=== PATIENT | female | born 1960 | race Caucasian/White ===

== ENCOUNTER 2020-02-16 09:45 | Outpatient (REF) | payer OTHER, SELFPAY ==
[2020-02-16 11:17] LABS: MANUAL DIFF FLAG NO
[2020-02-16 11:27] LABS: Basophils Percent Auto 0.6 % (0-2); Eosinophils Absolute Auto 0.1 X10*3/uL (0.0-0.4); Eosinophils Percent Auto 2.9 % (0-4); Hematocrit 42.3 % (37-47); Hemoglobin 13.8 g/dl (12.0-16.0); Imm Gran Abs Auto 0.02 X10*3/uL (0.00-0.03); Imm Gran Pct Auto 0.4 % (0.0-0.4); Lymphocytes Percent Auto 19.3 % (20-40); Mean Corpuscular HGB Conc 32.6 g/dl (31.0-35.0); Mean Corpuscular Hemoglobin 30.5 pg (27.0-33.0); Mean Corpuscular Volume 93.6 fL (80-98); Mean Platelet Volume 9.4 fL (9.4-12.3); Monocytes Absolute Auto 0.3 X10*3/uL (0.1-1.2); Monocytes Percent Auto 6.1 % (2-11); Neutrophils Absolute Auto 3.5 X10*3/uL (2.0-8.3); Neutrophils Percent Auto 70.7 % (45-73); Platelet Count 246 X10*3/uL (160-400); Red Blood Count 4.52 X10*6/uL (4.20-5.50); Red Cell Distribution Width 12.7 % (11.0-16.0); White Blood Count 4.9 X10*3/uL (4.8-10.8)
[2020-02-16 12:05] LABS: TSH reflex Free T4 1.97 mIU/mL (0.32-4.0)
[2020-02-16 12:09] LABS: Anion Gap 12 (12-20); Blood Urea Nitrogen 11 mg/dL (9-16); Carbon Dioxide 29 mmol/L (22-29); Chloride 104 mmol/L (96-108); Estimated Glomerular Filt Rate > 60; Glucose Random 231 mg/dL (60-115); Potassium 3.5 mmol/l (3.3-5.1); Sodium 141 mmol/L (135-145)
== END 2020-02-16 09:46 | disposition home or self-care (01) ==
LOC: HO.HMGCLDS 09:45
PROVIDERS: PCP Internal Medicine; Visit Provider Nurse Practitioner Family
DX: R51.9 Headache, unspecified (principal); R11.0 Nausea
CPT/HCPCS: 36415; 80048; 84443; 85025

== ENCOUNTER 2020-04-06 09:41 | Outpatient (REF) | payer OTHER, SELFPAY ==
[2020-04-06 11:39] LABS: Estimated Average Glucose 134 mg/dL; Hemoglobin A1c % 6.3 %
[2020-04-06 12:42] LABS: SARS COV2 IgG Positive (Negative)
== END 2020-04-06 09:42 | disposition home or self-care (01) ==
LOC: HO.HMGCLDS 09:41
PROVIDERS: PCP Internal Medicine; Visit Provider Internal Medicine
DX: U07.1 COVID-19 (principal); E11.9 Type 2 diabetes mellitus without complications; Z01.84 Encounter for antibody response examination
CPT/HCPCS: 36415; 83036; 86769

== ENCOUNTER 2020-04-08 11:52 | Emergency (ER) | payer OTHER, SELFPAY ==
--- NOTE | 2020-04-08 | ECG_ITS ---
Test Reason : RAPID HERT RATE Blood Pressure : / mmHG Vent. Rate : 125 BPM Atrial Rate : 125 BPM P-R Int : 166 ms QRS Dur : 072 ms QT Int : 296 ms P-R-T Axes : 057 000 040 degrees QTc Int : 427 ms Sinus tachycardia Low voltage QRS Cannot rule out Inferior infarct , age undetermined Abnormal ECG No previous ECGs available Referred By: Generic ED Physician Electronically Signed By:JAYESH CUNNINGHAM
--- NOTE | ~2020-04-08 | XR_ITS ---
EXAMINATION: CHEST 1 VIEW CLINICAL INFORMATION: Tachycardia. COMPARISON: April 14, 2006. TECHNIQUE: An AP view of the chest is provided. FINDINGS: The cardiac silhouette is not enlarged. The mediastinal and hilar contours are unremarkable. There are neither pleural effusions nor pneumothoraces. There are no consolidations. There is a coarse calcification overlying the left greater tuberosity possibly indicative of calcific tendinitis or bursitis. The osseous structures are otherwise unremarkable. XR/XR chest 1V IMPRESSION: No evidence for acute disease.
[2020-04-08 11:55] VITALS: BP 148/111; PULSE 145; RESP 15; TEMP 36.7; O2SAT 98; BMI 28.1
[2020-04-08 12:00] VITALS: BP 160/114; PULSE 125; RESP 17; O2SAT 99
[2020-04-08 14:03] VITALS: PULSE 126
--- NOTE | 2020-04-08 14:03 | PC.NURSE ---
patient a&ox2, media monitor applied, sinus tach on monitor 120s, pt hypertensive-provider aware, pt offers no other complaints other than feeling her heart beat fast, provider at bedside, will continue to monior.
--- NOTE | 2020-04-08 14:12 | ED.ARRPALP ---
HPI - Arrhythmia/Palpitations General Chief Complaint: Arrhythmia/Palpitations Stated Complaint: tachycardia Time Seen by Provider: 04/08/20 13:52 History of Present Illness HPI narrative: Patient complains of elevated blood pressure of 148/110 when she checked it at home, and then she noticed on the blood pressure monitor that her heart was beating at 01:40 and she felt she might a mild sensation of racing heart On a recent visit to her primary doctor 2 days ago she was found have a heart rate of 120 and the doctor had told her they would re-evaluated but given that she was asymptomatic they would wait and see so no workup was done at that time but she feels like her heart has been a little quicker than normal for the last several days She never had chest pain no shortness of breath no sweating no nausea no vomiting, she has been eating and drinking normally does not feel dehydrated does not feel dizzy or weak, she denies any bleeding from any any source, denies any black stools, she has had no fever or recent illness Related Data Previous Rx's Medication Instructions Recorded budesonide-formoterol HFA 80 2 puff INHALATION BID #10.2 g 12/14/19 mcg-4.5 mcg/actuation aerosol inhaler levothyroxine 50 mcg tablet 150 mcg PO DAILY #258 tab 12/23/19 losartan 50 mg tablet 50 mg PO DAILY #100 tab 03/08/20 Allergies Allergy/AdvReac Type Severity Reaction Status Date / Time No Known Allergies Allergy Verified 04/03/20 13:20 Review of Systems Review of Systems: Review of systems is positive for feeling heart racing, negatives are no fever no chills no dizziness no weakness no headache no neck pain no sore throat no chest pain no shortness of breath no doc no sweating no diaphoresis no abdominal pain no nausea no vomiting no diarrhea no black stools no dysuria no numbness or weakness PMFSH Past Medical History PMFSH Narrative: Patient has past medical history of thyroid ablation and now takes thyroid supplement Source: nursing notes reviewed Medical History Asthma COVID-19 Gastric polyp GERD (gastroesophageal reflux disease) HTN (hypertension) Hypothyroidism Microscopic hematuria Type 2 diabetes mellitus Surgical History H/O colonoscopy History of hysteroscopy Family History Family History (Updated 04/03/20 @ 13:20 by Anabell Baez, RMA, [employer]) Father No problems noted. Social History Social History Alcohol intake: former Smoking Status: Never smoker Use of substances other than those prescribed or required for medical reasons: No Advance Directives: No Advance Directives Information Provided: Yes Physical Exam Vital Signs: Vital Signs: Last Vital Signs Temp 98.1 F 04/08/20 11:55 Pulse 126 H 04/08/20 14:03 Resp 17 04/08/20 12:00 BP 160/114 H 04/08/20 12:00 Pulse Ox 99 04/08/20 12:00 Body Mass Index 28.1 Patient is A&O x3, comfortable relax no acute distress and cooperative The head is normocephalic atraumatic the pharynx is clear with moist mucous membranes The neck is supple The chest is clear to auscultation bilaterally with full symmetric equal breath sounds The heart no murmur auscultated The abdomen is soft nontender Extremities no edema, no calf tenderness or calf swelling The skin no rashes The neuro no facial asymmetry no motor deficit no sensory deficit, gait and balance are normal, verbal interaction and understanding are normal Course Course Course Narrative: Patient came in at this time when I examined her asymptomatic but concerned about the high heart rate EKG so showed sinus tachycardia at a rate of 125 Differential diagnosis included fever dehydration heart attack blood clot, anemia Workup showed negative D-dimer and negative troponin negative thyroid testing negative for anemia, chest x-ray was normal, no acute lab abnormalities Patient was hydrated with 1 L and pulse on monitor remained around 90-95 for the remainder of the visit patient was asymptomatic and was discharged with a diagnosis of tachycardia She will follow with primary doctor and discuss possible referral to preschool special education teacher for possible Holter monitor or further evaluation MDM - Arrhythmia/Palpitations Lab Data Attestation: I reviewed the patient's lab results. Result diagrams: 04/08/20 14:32 04/08/20 14:32 Labs: Lab Results 04/08/20 04/08/20 04/08/20 Range/Units 14:32 14:32 14:32 WBC 7.1 (4.8-10.8) X10*3/uL RBC 4.97 (4.20-5.50) X10*6/uL Hgb 15.1 (12.0-16.0) g/dl Hct 45.0 (37-47) % MCV 90.5 (80-98) fL MCH 30.4 (27.0-33.0) pg MCHC 33.6 (31.0-35.0) g/dl RDW 13.2 (11.0-16.0) % Plt Count 216 (160-400) X10*3/uL MPV 9.4 (9.4-12.3) fL Immature Gran % (Auto) 0.3 (0.0-0.4) % Neut % (Auto) 68.9 (45-73) % Lymph % (Auto) 22.2 (20-40) % Routt % (Auto) 7.1 (2-11) % Eos % (Auto) 1.1 (0-4) % Baso % (Auto) 0.4 (0-2) % Lymph # (Auto) 1.6 (1.2-4.9) X10*3/uL Routt # (Auto) 0.5 (0.1-1.2) X10*3/uL Eos # (Auto) 0.1 (0.0-0.4) X10*3/uL Baso # (Auto) 0.0 (0.0-0.2) X10*3/uL Abs Immat Gran (auto) 0.02 (0.00-0.03) X10*3/uL Absolute Neuts (auto) 4.9 (2.0-8.3) X10*3/uL Absolute Nucleated RBC 0.000 (0.0-0.012) X10*3/uL Nucleated RBC % (auto) 0.0 (0.0-0.2) /100WBC D-Dimer < 200 NG/ML Hold Blue Top SEE NOTE Sodium 140 (135-145) mmol/L Potassium 3.9 (3.3-5.1) mmol/L Chloride 105 (96-108) mmol/L Carbon Dioxide 25 (22-29) mmol/L Anion Gap 14 (12-20) BUN 10 (9-16) mg/dL Creatinine 0.74 (0.5-1.4) mg/dL Estim Creat Clear Calc 80.7 Estimated GFR > 60 Random Glucose 125 H D (60-115) mg/dL Calcium 9.6 D (8.4-10.2) mg/dL Troponin I High Sens (<3.5-17.0) ng/L TSH (0.32-4.0) uIU/mL 04/08/20 04/08/20 Range/Units 14:32 14:32 WBC (4.8-10.8) X10*3/uL RBC (4.20-5.50) X10*6/uL Hgb (12.0-16.0) g/dl Hct (37-47) % MCV (80-98) fL MCH (27.0-33.0) pg MCHC (31.0-35.0) g/dl RDW (11.0-16.0) % Plt Count (160-400) X10*3/uL MPV (9.4-12.3) fL Immature Gran % (Auto) (0.0-0.4) % Neut % (Auto) (45-73) % Lymph % (Auto) (20-40) % Routt % (Auto) (2-11) % Eos % (Auto) (0-4) % Baso % (Auto) (0-2) % Lymph # (Auto) (1.2-4.9) X10*3/uL Routt # (Auto) (0.1-1.2) X10*3/uL Eos # (Auto) (0.0-0.4) X10*3/uL Baso # (Auto) (0.0-0.2) X10*3/uL Abs Immat Gran (auto) (0.00-0.03) X10*3/uL Absolute Neuts (auto) (2.0-8.3) X10*3/uL Absolute Nucleated RBC (0.0-0.012) X10*3/uL Nucleated RBC % (auto) (0.0-0.2) /100WBC D-Dimer NG/ML Hold Blue Top Sodium (135-145) mmol/L Potassium (3.3-5.1) mmol/L Chloride (96-108) mmol/L Carbon Dioxide (22-29) mmol/L Anion Gap (12-20) BUN (9-16) mg/dL Creatinine (0.5-1.4) mg/dL Estim Creat Clear Calc Estimated GFR Random Glucose (60-115) mg/dL Calcium (8.4-10.2) mg/dL Troponin I High Sens < 3.5 (<3.5-17.0) ng/L TSH 0.61 (0.32-4.0) uIU/mL ECG Data Interpretation: EKG showed sinus tachycardia at a rate of 125, no acute ST changes no acute ischemic changes ND was 166 normal and QRS duration was 72 QT was normal Discharge Plan Discharge Clinical Impression: Sinus tachycardia Patient Disposition: Home, Self-Care Additional Instructions: Our workup today did not reveal any dangerous cause for your intermittent racing heartbeat We checked for pulmonary embolus heart attack anemia elevated thyroid all of which were normal You had no recent illness and have not been dehydrated We could not identify the cause so we advise very close follow-up with primary doctor this week, you may need referral to a preschool special education teacher for Holter monitor Make sure to stay well hydrated Return to ER any time any worse condition or concerns, any time for chest pain shortness of breath vomiting dehydration fever any concerns For your finding that blood pressure has been elevated recently keep a log of blood pressure readings at home and again follow closely with primary doctor Prescriptions: No Action budesonide-formoterol [Symbicort] 80-4.5 mcg/actuation HFA aerosol inhaler 2 puff inhalation BID Qty: 10.2 RF: 3 levothyroxine 50 mcg tablet 150 mcg PO DAILY Qty: 258 RF: 1 losartan 50 mg tablet 50 mg PO DAILY Qty: 100 RF: 3
[2020-04-08] MEDS: 0.9 % Sodium Chloride 1,000 ML 999 ML IVCONT (14:37)
--- NOTE | 2020-04-08 14:38 | PC.NURSE ---
iv inserted, labs drawn, ekg was performed in triage, ivf running per order, will continue to monitor.
[2020-04-08 14:39] LABS: MANUAL DIFF FLAG NO
[2020-04-08 14:56] LABS: Basophils Percent Auto 0.4 % (0-2); D Dimer < 200 NG/ML; Eosinophils Absolute Auto 0.1 X10*3/uL (0.0-0.4); Eosinophils Percent Auto 1.1 % (0-4); Hemoglobin 15.1 g/dl (12.0-16.0); Imm Gran Abs Auto 0.02 X10*3/uL (0.00-0.03); Imm Gran Pct Auto 0.3 % (0.0-0.4); Lymphocytes Absolute Auto 1.6 X10*3/uL (1.2-4.9); Lymphocytes Percent Auto 22.2 % (20-40); Mean Corpuscular HGB Conc 33.6 g/dl (31.0-35.0); Mean Corpuscular Hemoglobin 30.4 pg (27.0-33.0); Mean Corpuscular Volume 90.5 fL (80-98); Mean Platelet Volume 9.4 fL (9.4-12.3); Monocytes Absolute Auto 0.5 X10*3/uL (0.1-1.2); Monocytes Percent Auto 7.1 % (2-11); Neutrophils Absolute Auto 4.9 X10*3/uL (2.0-8.3); Neutrophils Percent Auto 68.9 % (45-73); Platelet Count 216 X10*3/uL (160-400); Red Blood Count 4.97 X10*6/uL (4.20-5.50); Red Cell Distribution Width 13.2 % (11.0-16.0); White Blood Count 7.1 X10*3/uL (4.8-10.8)
[2020-04-08 15:05] LABS: Anion Gap 14 (12-20); Blood Urea Nitrogen 10 mg/dL (9-16); Calcium 9.6 mg/dL (8.4-10.2); Carbon Dioxide 25 mmol/L (22-29); Chloride 105 mmol/L (96-108); Creatinine Clr Calc Pharmacy 80.7; Estimated Glomerular Filt Rate > 60; Glucose Random 125 mg/dL (60-115); Potassium 3.9 mmol/L (3.3-5.1); Sodium 140 mmol/L (135-145)
[2020-04-08 15:12] LABS: Troponin-I High Sensitivity < 3.5 ng/L (<3.5-17.0)
[2020-04-08 15:27] LABS: TSH reflex Free T4 0.61 uIU/mL (0.32-4.0)
[2020-04-08 16:25] VITALS: PULSE 97; RESP 16
== END 2020-04-08 16:26 | disposition home or self-care (01) ==
PROVIDERS: Physician Assistant Medical; Emergency Provider Emergency Medicine Emergency Medical Services; PCP Internal Medicine
DX: R00.0 Tachycardia, unspecified (principal); I49.9 Cardiac arrhythmia, unspecified; E11.9 Type 2 diabetes mellitus without complications; I10 Essential (primary) hypertension; Z79.899 Other long term (current) drug therapy; Z86.16 Personal history of COVID-19
CPT/HCPCS: 36415; 71045; 80048; 84443; 84484; 85025; 85379; 93005; 96360; 99284; 99285

== ENCOUNTER 2020-04-13 09:31 | Outpatient (REF) | payer OTHER, SELFPAY ==
--- NOTE | ~2020-04-13 | CT_ITS ---
EXAMINATION: CT ANGIOGRAM OF THE CHEST WITH AND WITHOUT CONTRAST (CT PULMONARY ANGIOGRAM FOR PE) CLINICAL INFORMATION: Reason for Exam R00.0 - Tachycardia, unspecified COMPARISON: None TECHNIQUE: Prior to contrast administration, noncontrast localization images were obtained. Subsequently, multidetector volumetric imaging was performed from the thoracic inlet to below the diaphragms following the administration of 64 mL Omnipaque 350 intravenous contrast. No contrast reaction reported Sagittal, coronal, and MIP oblique sagittal reformatted images were obtained on the CT workstation, uploaded to PACS, and reviewed. This CT examination was performed using dose optimization techniques as appropriate, variously including the following: *Automated exposure control *Adjustment of mA and/or kV according to patient size (this includes techniques or standardized protocols for targeted exams where dose is matched to indication/reason for exam; i.e. extremities or head) *Use of iterative reconstruction technique Total exam dose-length product 118 mGy-cm FINDINGS: QUALITY OF STUDY/CONTRAST BOLUS: Satisfactory. PULMONARY ARTERIES: No central or segmental pulmonary emboli. THORACIC AORTA: No aneurysm or dissection. LUNG: No focal consolidation, nodules or masses. PLEURA: No pleural effusion or pneumothorax. MEDIASTINUM: Normal heart size. No pericardial effusion. No hilar or mediastinal lymphadenopathy. No evidence of septal bowing or right heart strain. There is a moderate-sized hiatal hernia. CHEST WALL/AXILLA: No axillary or internal mammary lymphadenopathy. OSSEOUS STRUCTURES: No lytic or sclerotic process seen. There is mild ventral spondylosis throughout dorsal spine. UPPER ABDOMEN: The liver is mildly attenuated but no focal lesion seen. The spleen, pancreas and partially visualized bilateral adrenal glands are unremarkable. No reflux of contrast into the hepatic veins to suggest elevated right heart pressures. CT/CT angio chest PE protocol IMPRESSION: No evidence of PE. No evidence of aortic dissection or aneurysm. There is moderate ventral spondylosis dorsal spine. No lytic process seen. Moderate constipation.. VTE: negative
[2020-04-13] MEDS: iohexoL 350 MG/ML 75 ML INFUS..BTL IV (15:26)
== END 2020-04-13 09:32 | disposition home or self-care (01) ==
LOC: HO.CT 09:31
PROVIDERS: PCP Internal Medicine; Visit Provider Internal Medicine
DX: R00.0 Tachycardia, unspecified (principal); I10 Essential (primary) hypertension; R73.03 Prediabetes; E03.9 Hypothyroidism, unspecified; Z86.16 Personal history of COVID-19
CPT/HCPCS: 71275; 93005; Q9967

== ENCOUNTER → 2020-04-16 12:43 | Outpatient (REF) | payer OTHER, SELFPAY ==
--- NOTE | 2020-04-16 12:55 | ECG_ITS ---
Hook-up date: 2020-04-16 13:01:00 Duration: 43:23:00 Test Indications: UNSPEC. TACHYCARDIA Medications: 447578 QRS complexes 2652 Ventricular ectopics which represent 2 % of total QRS comp. 157 Supraventricular ectopics which represent <1 % of total QRS comp. * Paced QRS complexs which represent % of total QRS comp. VENTRICULAR ECTOPY 2642 Isolated 0 Bigeminal Cycles 5 Couplets 0 Runs 0 Beats in Runs * Beats LONGEST at * BPM at :: -- * Beats FASTEST at * BPM at :: -- SUPRAVENTRICULAR ECTOPY 108 Isolated 11 Couplets 4 Runs 27 Beats in Runs 10 Beats LONGEST at 99 BPM at 13:26:49 2020-04-16 10 Beats FASTEST at 99 BPM at 13:26:49 2020-04-16 HEART RATES 55 MIN at 01:54:40 2020-04-17 85 AVG 133 MAX at 08:18:03 2020-04-17 LONGEST RR 1.8560 secs at 01:54:35 2020-04-17 S-T LEVELS Channel 1 - 128 mm at 13:01:00 2020-04-16 - 128 mm at 13:01:00 2020-04-16 Channel 2 - 128 mm at 13:01:00 2020-04-16 - 128 mm at 13:01:00 2020-04-16 Channel 3 - 128 mm at 03:22:01 -- - 128 mm at 03:22:01 Underlying rhythm is sinus; Average ventricular rate 85/min; range 55-133/min; About 17% of the time, ventricular rate >100/min; Frequent ventricular ectopy (2%); Occasional supraventricular ectopy; Patient did not report any symptoms in the diary Referred By: Tiffany Stringer Overread By: JAYESH CUNNINGHAM
== END ==
LOC: HO.CARD 12:43
PROVIDERS: PCP Internal Medicine; Visit Provider Internal Medicine
DX: R00.0 Tachycardia, unspecified (principal); E03.9 Hypothyroidism, unspecified
CPT/HCPCS: 93225; 93226

== ENCOUNTER → 2020-04-17 07:38 | Outpatient (REF) | payer OTHER, SELFPAY ==
--- NOTE | 2020-04-17 07:42 | CA_ITS ---
Transthoracic Echocardiogram Patient (Last, First, Middle): Gretchen Lawler M Gender: Female Date of : 1960 Age: 60 Procedure Date: 04/17/2020 Procedure Type: Transthoracic Echocardiogram Location: OP Height: 165.1 cm Weight: 77.57 kg BSA: 1.85 m2 Heart Rate: bpm BP: 151 / 97 mmHg Home Improvement Advisor: CRISTIANO Referring MD: Tiffany Stringer MD Symptoms: R00.0 - Tachycardia, unspecified Study Quality: Fair ECG Rhythm: Sinus Conclusions: - The left ventricular systolic function is normal. The visually estimated ejection fraction is between 55-60%. - No obvious valvular pathology seen on this study. Findings Left Ventricle Normal left ventricular cavity size. There is normal left ventricular wall thickness. The left ventricular systolic function is normal. The visually estimated ejection fraction is between 55-60%. The calculated ejection fraction is 61% by biplane method. There is no evidence of regional wall motion abnormalities. E/E prime ratio is <8, consistent with normal filling pressures. Evidence suggests grade I (mild) diastolic dysfunction. Right Ventricle Normal right ventricular cavity size and systolic function. Atria Both atria are normal in size. Aortic Valve There is a normal trileaflet aortic valve. There is no aortic valve stenosis. There is no aortic valve regurgitation. Mitral Valve The mitral valve appears normal. There is no mitral valve regurgitation. There is no mitral valve stenosis. Pulmonic Valve The pulmonic valve was not well visualized. Tricuspid Valve Normal tricuspid valve structure. There is trace tricuspid valve regurgitation. The pulmonary artery systolic pressure is normal. Great Vessels The aortic annulus, sinuses of valsalva, asc aorta, and aortic arch are normal in size. Venous The inferior vena cava is normal in size and collapses greater than 50% with inspiration. Pericardium/Pleural There is no evidence of pericardial effusion. Prior Study Comparison No prior study available for comparison. Recommendations, Care & Conclusions No obvious valvular pathology seen on this study. Measurements M-Mode Liner Measurements Normals - Women/Men AOV Cusps: 2.10 1.5-2.6 cm/m2 2D Linear Measurements IVSd: 0.81 0.6-0.9/0.6-1.0 cm LVIDd: 4.58 3.9-5.3/4.2-5.9 cm LVIDd Index: 2.48 2.4-3.2/2.2-3.1 cm/m2 LVIDs: 3.95 2.0-3.6 cm LVPWd: 0.77 0.7-1.1 cm Ao Root: 3.00 2.1-3.5 cm LA Diam: 2.50 2.7-3.8/3.0-4.0 cm LAIDs Index: 1.35 1.5-2.3 cm/m2 LV Mass: 143.18 67-162/88-224 g LV Mass Index: 77.39 43-95/49-115 g/m2 LVOT Diam: 2.30 3.0+(-)1.3 cm 2D Systolic Function EF 4C: 56.10 >55% EF 2C: 65.20 >55% EF BiP: 60.90 >55% Mitral Valve MV Pk E: 0.75 MV PK A: 1.10 MV Decel Time: 240.00 E/A: 0.70 E'Lateral: 9.79 E'Medial: 7.29 E/E' Med: 10.20 E/E' Lat: 7.60 PHT: 70.00 MVA PHT: 3.14 Decel Mercer: 3.11 Aortic Valve AoV Pk Mirza: 1.15 AoV Pk Grad: 5.00 LVOT LVOT Pk Mirza: 0.80 LVOT Mn Mirza: 0.51 LVOT VTI: 0.20 LVOT Pk Grad: 3.00 LVOT Mn Grad: 1.00 LVOT Diam: 2.30 LVOT Area: 4.15 Diastolic Function MV Pk E: 0.75 MV Pk A: 1.10 E/A: 0.70 E'Medial: 7.29 E/E' Med: 10.20 E' Laterial: 9.79 E/E' Lat: 7.60 Tricuspid Valve RA Press: 3.00 Great Vessels Aorta Ao Root-2D: 3.00 2.0-3.7 cm Ao Asc: 3.30 2.1-3.4 cm Ao Arch: 2.00 Pulmonary Valve PV Pk Mirza: 0.81 Peak PV Grad: 3.00 Updated in Other Vendor System with Status of Final Benjamin Kennedy MD electronically signed on 04/17/2020 8:47:06 AM with status of Final
== END ==
LOC: HO.CARD 07:38
PROVIDERS: PCP Internal Medicine; Visit Provider Internal Medicine
DX: R00.0 Tachycardia, unspecified (principal); I10 Essential (primary) hypertension; E03.9 Hypothyroidism, unspecified
CPT/HCPCS: 93306

== ENCOUNTER → 2020-04-27 13:01 | Outpatient (BNVA) | payer OTHER, SELFPAY | PROVIDERS: PCP Internal Medicine; Visit Provider Nurse Practitioner Family ==

== ENCOUNTER 2020-06-04 12:28 | Outpatient (REF) | payer OTHER, SELFPAY ==
--- NOTE | ~2020-06-04 | MM_ITS ---
EXAMINATION: MM SCREENING DIGITAL BREAST TOMOSYNTHESIS, BILATERAL CLINICAL INFORMATION: Screening. Asymptomatic. The lifetime risk of breast cancer based on the Tyrer-Cuzick Model is 6%. COMPARISON: Mammography: 04/11/2019, 04/05/2018, 09/24/2017 TECHNIQUE: Digital breast tomosynthesis is performed in both the craniocaudal and mediolateral oblique views along with computer-aided detection (CAD). Synthesized 2D images are generated from the tomosynthesis. FINDINGS: The breasts are heterogeneously dense, which may obscure small masses (ACR BI-RADS breast composition Category c). There are no significant masses, abnormal calcifications, or other abnormalities. There is biopsy clip marker again noted mid 12:00 left breast. Parenchymal pattern is similar to prior studies. No developing density. No significant changes. MM/MM tomosynthesis screening BI IMPRESSION: No mammographic evidence of malignancy. ASSESSMENT: BI-RADS 1: Negative RECOMMENDATION: Routine annual mammography screening. This patient's information was entered into a reminder system with a target due date for their next mammogram.
== END 2020-06-04 12:29 | disposition home or self-care (01) ==
LOC: HO.MAMMO 12:28
PROVIDERS: PCP Internal Medicine; Visit Provider Internal Medicine
DX: Z12.31 Encounter for screening mammogram for malignant neoplasm of breast (principal)
CPT/HCPCS: 77063; 77067

== ENCOUNTER → 2020-06-05 10:30 | Outpatient (BNVA) | payer OTHER, SELFPAY | PROVIDERS: PCP Internal Medicine; Visit Provider Nurse Practitioner Family | DX: R00.0 Tachycardia, unspecified (principal); I10 Essential (primary) hypertension; U07.1 COVID-19; Z79.899 Other long term (current) drug therapy | CPT/HCPCS: 93005 ==

== ENCOUNTER 2020-06-21 07:53 | Outpatient (REF) | payer OTHER, SELFPAY ==
[2020-06-21 11:26] LABS: MANUAL DIFF FLAG NO
[2020-06-21 11:37] LABS: Basophils Percent Auto 0.5 % (0-2); Eosinophils Absolute Auto 0.3 X10*3/uL (0.0-0.4); Eosinophils Percent Auto 4.3 % (0-4); Hematocrit 46.3 % (37-47); Imm Gran Abs Auto 0.01 X10*3/uL (0.00-0.03); Imm Gran Pct Auto 0.2 % (0.0-0.4); Lymphocytes Absolute Auto 1.9 X10*3/uL (1.2-4.9); Lymphocytes Percent Auto 33.4 % (20-40); Mean Corpuscular HGB Conc 32.4 g/dl (31.0-35.0); Mean Corpuscular Hemoglobin 30.2 pg (27.0-33.0); Mean Corpuscular Volume 93.2 fL (80-98); Mean Platelet Volume 9.8 fL (9.4-12.3); Monocytes Absolute Auto 0.5 X10*3/uL (0.1-1.2); Neutrophils Absolute Auto 3.1 X10*3/uL (2.0-8.3); Neutrophils Percent Auto 52.6 % (45-73); Platelet Count 217 X10*3/uL (160-400); Red Blood Count 4.97 X10*6/uL (4.20-5.50); Red Cell Distribution Width 13.3 % (11.0-16.0); White Blood Count 5.8 X10*3/uL (4.8-10.8)
[2020-06-21 11:51] LABS: Estimated Average Glucose 126 mg/dL
[2020-06-21 12:03] LABS: Alanine Aminotransferase 26 U/L (0-31); Albumin Level 4.3 g/dL (3.5-5.0); Alkaline Phosphatase 67 U/L (39-117); Anion Gap 11 (12-20); Aspartate Amino Transferase 20 U/L (5-31); Bilirubin Total 0.8 mg/dL (0.0-1.0); Blood Urea Nitrogen 13 mg/dL (9-16); Calcium 9.7 mg/dL (8.4-10.2); Carbon Dioxide 30 mmol/L (22-29); Chloride 104 mmol/L (96-108); Cholesterol 153 mg/dL; Estimated Glomerular Filt Rate > 60; Glucose Fasting 125 mg/dL (60-99); HDL Cholesterol 66 mg/dL; LDL Cholesterol Calculated 77 mg/dl; Potassium 4.9 mmol/L (3.3-5.1); Sodium 140 mmol/L (135-145); Triglycerides 53 mg/dL
[2020-06-21 12:08] LABS: TSH reflex Free T4 0.28 uIU/mL (0.32-4.0)
[2020-06-21 12:41] LABS: Free T4 (Free Thyroxine) 1.27 ng/dL (0.71-1.85)
== END 2020-06-21 07:54 | disposition home or self-care (01) ==
LOC: HO.HMGCLDS 07:53
PROVIDERS: PCP Internal Medicine; Visit Provider Nurse Practitioner Family
DX: E03.9 Hypothyroidism, unspecified (principal); I10 Essential (primary) hypertension; R00.0 Tachycardia, unspecified; E11.9 Type 2 diabetes mellitus without complications; U07.1 COVID-19
CPT/HCPCS: 36415; 80053; 80061; 83036; 84439; 84443; 85025

== ENCOUNTER → 2020-06-26 11:28 | Outpatient (BNVA) | payer OTHER, SELFPAY | PROVIDERS: PCP Internal Medicine; Referring Provider Internal Medicine; Visit Provider Nurse Practitioner Family ==

== ENCOUNTER 2020-08-20 08:06 | Outpatient (REF) | payer OTHER, SELFPAY ==
[2020-08-20 12:00] LABS: TSH reflex Free T4 0.17 uIU/mL (0.32-4.0)
[2020-08-20 12:48] LABS: Free T4 (Free Thyroxine) 1.28 ng/dL (0.71-1.85)
[2020-08-22 16:37] LABS: Triiodothyronine T3 Free 3.1 pg/mL (2.3-4.2)
== END 2020-08-20 08:07 | disposition home or self-care (01) ==
LOC: HO.HMGCLDS 08:06
PROVIDERS: PCP Internal Medicine; Visit Provider Internal Medicine
DX: E03.9 Hypothyroidism, unspecified (principal)
CPT/HCPCS: 36415; 84439; 84443; 84481

== ENCOUNTER 2020-10-02 09:58 | Outpatient (REF) | payer OTHER, SELFPAY ==
[2020-10-02 12:32] LABS: Free T4 (Free Thyroxine) 1.36 ng/dL (0.71-1.85); TSH reflex Free T4 1.59 uIU/mL (0.32-4.0)
== END 2020-10-02 09:59 | disposition home or self-care (01) ==
LOC: HO.HMGCLDS 09:58
PROVIDERS: PCP Internal Medicine; Visit Provider Internal Medicine
DX: E03.9 Hypothyroidism, unspecified (principal)
CPT/HCPCS: 36415; 84439; 84443

== ENCOUNTER 2020-11-30 07:10 | Outpatient (REF) | payer OTHER, SELFPAY ==
[2020-11-30 12:00] LABS: Estimated Average Glucose 128 mg/dL; Hemoglobin A1c % 6.1 %
[2020-11-30 12:02] LABS: Alanine Aminotransferase 30 U/L (0-31); Albumin Level 4.3 g/dL (3.5-5.0); Alkaline Phosphatase 61 U/L (39-117); Anion Gap 10 (12-20); Aspartate Amino Transferase 23 U/L (5-31); Bilirubin Total 0.6 mg/dL (0.0-1.0); Blood Urea Nitrogen 12 mg/dL (9-16); Calcium 9.7 mg/dL (8.4-10.2); Carbon Dioxide 30 mmol/L (22-29); Chloride 108 mmol/L (96-108); Estimated Glomerular Filt Rate > 60; Glucose Fasting 130 mg/dL (60-99); Potassium 4.7 mmol/L (3.3-5.1); Sodium 143 mmol/L (135-145)
[2020-11-30 12:25] LABS: TSH reflex Free T4 1.85 uIU/mL (0.32-4.0)
== END 2020-11-30 07:11 | disposition home or self-care (01) ==
LOC: HO.HMGCLDS 07:10
PROVIDERS: PCP Internal Medicine; Visit Provider Internal Medicine
DX: Z00.00 Encounter for general adult medical examination without abnormal findings (principal); E11.9 Type 2 diabetes mellitus without complications; I10 Essential (primary) hypertension
CPT/HCPCS: 36415; 80053; 83036; 84443

== ENCOUNTER → 2021-01-01 14:09 | Outpatient (BNVA) | payer OTHER, SELFPAY | PROVIDERS: PCP Internal Medicine; Referring Provider Internal Medicine; Visit Provider Nurse Practitioner Family | DX: I49.3 Ventricular premature depolarization (principal); I10 Essential (primary) hypertension; R00.2 Palpitations; R00.0 Tachycardia, unspecified; U09.9 Post COVID-19 condition, unspecified | CPT/HCPCS: 93005 ==

== ENCOUNTER → 2021-01-23 10:53 | Outpatient (REF) | payer OTHER, SELFPAY ==
--- NOTE | 2021-01-23 10:55 | HM_ITS ---
Conclusion: 1.Patient was monitored for a total of 3 days 2. Baseline rhythm is NSR with average HR of 81 bpm 3. No significant pauses or bradycardia noted 4. Frequent PVC with total burden of 3.2 % of total beats 5. No patient reported events MTDD
== END ==
LOC: HO.CARD 10:53
PROVIDERS: PCP Internal Medicine; Visit Provider Nurse Practitioner Family
DX: R00.0 Tachycardia, unspecified (principal)
CPT/HCPCS: 93242

== ENCOUNTER 2021-06-14 09:02 | Outpatient (REF) | payer OTHER, SELFPAY ==
--- NOTE | ~2021-06-14 | MM_ITS ---
EXAMINATION: MM SCREENING DIGITAL BREAST TOMOSYNTHESIS, BILATERAL CLINICAL INFORMATION: Screening. Asymptomatic. The lifetime risk of breast cancer based on the Tyrer-Cuzick Model is 6%. COMPARISON: Mammography: 06/04/2020, 04/11/2019, 04/05/2018 TECHNIQUE: Digital breast tomosynthesis is performed in both the craniocaudal and mediolateral oblique views along with computer-aided detection (CAD). Synthesized 2D images are generated from the tomosynthesis. FINDINGS: The breasts are heterogeneously dense, which may obscure small masses (ACR BI-RADS breast composition Category c). Breast tissue composition borders on average fibroglandular. There is no developing density or interval mass or architectural abnormality. Left breast has biopsy clip marker overlying stable architectural changes mid 12:00 position. The axilla and skin contours are unremarkable. Right breast has a punctate grouped calcifications posterior 11:00 position on CC view, possibly combination of vascular calcifications upper central breast. Calcifications are new since 2020. Patient will be recalled for additional magnification views. No abnormal calcifications on left. MM/MM tomosynthesis screening BI IMPRESSION: Right: Tight grouped calcifications posterior upper breast, possibly vascular. Left: No significant changes from prior studies. ASSESSMENT: BI-RADS 0: Incomplete - Need Additional Imaging Evaluation RECOMMENDATION: 1. Additional views of the right breast (magnification CC, magnification ML). 2. Radiology department staff will contact the patient for additional imaging. This patient's information was entered into a reminder system with a target due date for their next mammogram.
== END 2021-06-14 09:03 | disposition home or self-care (01) ==
LOC: HO.MAMMO 09:02
PROVIDERS: PCP Internal Medicine; Visit Provider Internal Medicine
DX: Z12.31 Encounter for screening mammogram for malignant neoplasm of breast (principal)
CPT/HCPCS: 77063; 77067

== ENCOUNTER 2021-06-25 14:38 | Outpatient (REF) | payer OTHER, SELFPAY ==
--- NOTE | ~2021-06-25 | MM_ITS ---
EXAMINATION: MM DIAGNOSTIC DIGITAL MAMMOGRAPHY, RIGHT CLINICAL INFORMATION: Recall from screening for punctate grouped calcifications 11:00 position upper central breast. COMPARISON: Mammography: 06/14/2021, 06/04/2020, 04/11/2019 TECHNIQUE: Digital mammography is performed in the following views: Magnification CC x2, magnification ML FINDINGS: The breasts are heterogeneously dense, which may obscure small masses (ACR BI-RADS breast composition Category c). Additional magnification views confirm tightly grouped calcifications approximately 10 in number which represent change from prior studies. The calcifications vary in size. They could represent fibroadenomatous change. Stereotactic sampling is suggested to confirm benignity. There are some other calcifications in the central inner breast which are related to the vasculature. Results are discussed with the patient at time of visit. MM/MM added views RT IMPRESSION: Grouped heterogeneous calcifications mid posterior 11:00 position representing change from prior studies. ASSESSMENT: BI-RADS 4: Suspicious (subcategory 4A: Low suspicion for malignancy) RECOMMENDATION: Stereotactic biopsy right breast calcifications. This patient's information was entered into a reminder system with a target due date for their next mammogram.
== END 2021-06-25 14:39 | disposition home or self-care (01) ==
LOC: HO.MAMMO 14:38
PROVIDERS: PCP Internal Medicine; Visit Provider Internal Medicine
DX: R92.1 Mammographic calcification found on diagnostic imaging of breast (principal)
CPT/HCPCS: 77065

== ENCOUNTER 2021-06-26 13:16 | Outpatient (REF) | payer OTHER, SELFPAY ==
--- NOTE | ~2021-06-26 | MM_ITS ---
EXAMINATION: STEREOTACTIC TOMOSYNTHESIS-GUIDED VACUUM-ASSISTED BREAST BIOPSY, RIGHT SPECIMEN RADIOGRAPH, RIGHT POST PROCEDURE DIGITAL MAMMOGRAM, RIGHT CLINICAL INFORMATION: Tightly grouped heterogeneous calcifications mid posterior 11:00 position, possibly fibroadenomatous change. COMPARISON: Mammography 06/25/2021, 06/14/2021, 05/15/2020, 04/11/2019.. TECHNIQUE/PROCEDURE: Informed consent was obtained from the patient after discussion of the benefits, risks, and alternatives to biopsy today. Patient appeared to understand. Gave opportunity for questions. Patient signed consent form. BIOPSY TABLE: [employer] Prone Biopsy System. LESION: Tightly grouped calcifications mid posterior 11:30 o'clock right breast. LOCAL ANESTHESIA: 10 mL carbonated 1% lidocaine; 10 mL 1% lidocaine with epinephrine. DERMATOTOMY: Single skin jemima dermatotomy performed. NEEDLE: [employer] Eviva 9-gauge vacuum assisted core biopsy device. APPROACH: Craniocaudal. TARGETING: Combination of digital breast tomosynthesis and stereotactic digital mammography used for targeting. CORES: 5. CLIP: [employer] SecurMark Cylinder-shaped marker. SPECIMEN RADIOGRAPH: Specimen radiograph is taken in separate room using digital mammography. The index calcifications are in the excised cores. There are at least 10 calcifications among 2 cores. POST PROCEDURE UNILATERAL DIGITAL MAMMOGRAM: The post biopsy mammogram is performed in separate room using separate digital mammography equipment from the biopsy procedure. CC and ML views are obtained. The breasts are heterogeneously dense, which may obscure small masses (breast composition category: c). The clip marker is in position. The calcifications are markedly decreased at the biopsy site. No gross hematoma. The patient tolerated the procedure well. No immediate complications. Home instructions reviewed with the patient. Final pathology results are pending. MM/MM stereotactic biopsy RT IMPRESSION: 1. Digital tomosynthesis-guided core biopsy right breast with clip placement. 2. Specimen radiograph taken and post procedure mammogram. There is satisfactory positioning of the biopsy clip. 3. Final pathology results pending. An addendum report will be issued.
[2021-06-26] MEDS: Lidocaine HCl 1 % 20 ML VIAL 10 ML SUBCUT (14:31)
[2021-06-26] MEDS: Sodium Bicarbonate 8.4% 50 MEQ/50 ML VIAL SUBCUT (14:35)
== END 2021-06-26 13:17 | disposition home or self-care (01) ==
LOC: HO.MAMMO 13:16
PROVIDERS: PCP Internal Medicine; Visit Provider Internal Medicine
DX: R92.1 Mammographic calcification found on diagnostic imaging of breast (principal)
CPT/HCPCS: 19081; 88305; A4648

== ENCOUNTER 2021-11-19 08:07 | Outpatient (REF) | payer OTHER, SELFPAY ==
[2021-11-19 11:36] LABS: Estimated Average Glucose 126 mg/dL
[2021-11-19 11:48] LABS: Alanine Aminotransferase 31 U/L (0-31); Albumin Level 4.4 g/dL (3.5-5.0); Alkaline Phosphatase 59 U/L (39-117); Anion Gap 13 (12-20); Aspartate Amino Transferase 23 U/L (5-31); Bilirubin Total 0.6 mg/dL (0.0-1.0); Blood Urea Nitrogen 16 mg/dL (9-16); Calcium 9.3 mg/dL (8.4-10.2); Carbon Dioxide 30 mmol/L (22-29); Chloride 103 mmol/L (96-108); Cholesterol 171 mg/dL; Estimated Glomerular Filt Rate > 60; Glucose Fasting 136 mg/dL (60-99); HDL Cholesterol 67 mg/dL; LDL Cholesterol Calculated 87 mg/dl; Sodium 142 mmol/L (135-145); Total Protein 7.2 g/dL (6.5-8.0); Triglycerides 86 mg/dL
[2021-11-19 12:06] LABS: Microalbum/Creatinine Ratio Ur 9.8 ug/mg cr
== END 2021-11-19 08:08 | disposition home or self-care (01) ==
LOC: HO.HMGCLDS 08:07
PROVIDERS: PCP Internal Medicine; Visit Provider Internal Medicine
DX: E03.9 Hypothyroidism, unspecified (principal); E11.9 Type 2 diabetes mellitus without complications; I10 Essential (primary) hypertension
CPT/HCPCS: 36415; 80053; 80061; 82043; 83036; 84439; 84443

== ENCOUNTER 2021-11-26 10:09 | Outpatient (REF) | payer OTHER, SELFPAY ==
[2021-12-05 12:11] LABS: HPV mRNA E6/E7 Not Detected (Not Detected)
== END 2021-11-26 10:10 | disposition home or self-care (01) ==
LOC: HO.LNP 10:09
PROVIDERS: Visit Provider Internal Medicine
DX: Z01.419 Encounter for gynecological examination (general) (routine) without abnormal findings (principal)
CPT/HCPCS: 87624; 88142

== ENCOUNTER 2021-12-26 07:46 | Outpatient (REF) | payer OTHER, SELFPAY ==
[2021-12-26 12:18] LABS: TSH reflex Free T4 2.14 uIU/mL (0.32-4.0)
== END 2021-12-26 07:47 | disposition home or self-care (01) ==
LOC: HO.HMGCLDS 07:46
PROVIDERS: PCP Internal Medicine; Visit Provider Internal Medicine
DX: E03.9 Hypothyroidism, unspecified (principal)
CPT/HCPCS: 36415; 84443

== ENCOUNTER → 2022-01-21 13:53 | Outpatient (REF) | payer OTHER, SELFPAY | LOC: HO.SL 13:53 | PROVIDERS: PCP Internal Medicine; Visit Provider Internal Medicine | DX: G47.30 Sleep apnea, unspecified (principal); R06.83 Snoring | CPT/HCPCS: 95806 ==

== ENCOUNTER → 2022-03-12 14:00 | Outpatient (BNVA) | payer OTHER, SELFPAY | PROVIDERS: PCP Internal Medicine; Referring Provider Internal Medicine; Visit Provider Nurse Practitioner Family | DX: R00.0 Tachycardia, unspecified (principal) | CPT/HCPCS: 93005 ==

== ENCOUNTER 2022-03-21 09:49 | Outpatient (REF) | payer OTHER, SELFPAY ==
[2022-03-21 12:02] LABS: Anion Gap 13 (12-20); Blood Urea Nitrogen 11 mg/dL (9-16); Calcium 9.4 mg/dL (8.4-10.2); Carbon Dioxide 28 mmol/L (22-29); Chloride 105 mmol/L (96-108); Estimated Glomerular Filt Rate > 60; Glucose Random 153 mg/dL (60-115); Potassium 3.9 mmol/L (3.3-5.1); Sodium 142 mmol/L (135-145)
== END 2022-03-21 09:50 | disposition home or self-care (01) ==
LOC: HO.HMGCLDS 09:49
PROVIDERS: PCP Internal Medicine; Visit Provider Nurse Practitioner Family
DX: I10 Essential (primary) hypertension (principal)
CPT/HCPCS: 36415; 80048

== ENCOUNTER → 2022-04-16 14:38 | Outpatient (BNVA) | payer OTHER, SELFPAY | PROVIDERS: PCP Internal Medicine; Visit Provider Internal Medicine | DX: Z13.89 Encounter for screening for other disorder (principal) ==

== ENCOUNTER 2022-05-07 07:51 | Outpatient (REF) | payer OTHER, SELFPAY ==
[2022-05-07 11:39] LABS: MANUAL DIFF FLAG NO
[2022-05-07 11:59] LABS: Basophils Percent Auto 0.6 % (0-2); Eosinophils Absolute Auto 0.3 X10*3/uL (0.0-0.4); Eosinophils Percent Auto 4.3 % (0-4); Hematocrit 47.6 % (37.0-47.0); Hemoglobin 15.6 g/dl (12.0-16.0); Imm Gran Abs Auto 0.01 X10*3/uL (0.00-0.03); Imm Gran Pct Auto 0.2 % (0.0-0.4); Lymphocytes Absolute Auto 2.3 X10*3/uL (1.2-4.9); Mean Corpuscular HGB Conc 32.8 g/dl (31.0-35.0); Mean Corpuscular Hemoglobin 30.2 pg (27.0-33.0); Mean Corpuscular Volume 92.1 fL (80.0-98.0); Mean Platelet Volume 9.7 fL (9.4-12.3); Monocytes Absolute Auto 0.5 X10*3/uL (0.1-1.2); Monocytes Percent Auto 8.4 % (2-11); Neutrophils Absolute Auto 3.2 x10*3/uL (2.0-8.3); Neutrophils Percent Auto 50.5 % (45-73); Platelet Count 229 X10*3/uL (160-400); Red Blood Count 5.17 X10*6/uL (4.20-5.50); Red Cell Distribution Width 13.2 % (11.0-16.0); White Blood Count 6.3 X10*3/uL (4.8-10.8)
[2022-05-07 12:01] LABS: Estimated Average Glucose 128 mg/dL; Hemoglobin A1c % 6.1 %
[2022-05-07 12:17] LABS: Alanine Aminotransferase 34 U/L (0-31); Albumin Level 4.3 g/dL (3.5-5.0); Alkaline Phosphatase 55 U/L (39-117); Anion Gap 13 (12-20); Aspartate Amino Transferase 29 U/L (5-31); Blood Urea Nitrogen 10 mg/dL (9-16); Calcium 9.5 mg/dL (8.4-10.2); Carbon Dioxide 28 mmol/L (22-29); Chloride 106 mmol/L (96-108); Estimated Glomerular Filt Rate > 60; Glucose Fasting 111 mg/dL (60-99); Potassium 4.8 mmol/L (3.3-5.1); Sodium 142 mmol/L (135-145); Total Protein 6.8 g/dL (6.5-8.0)
[2022-05-07 12:21] LABS: Creatinine Urine 179.45 mg/dL; Microalbum/Creatinine Ratio Ur 40.6 ug/mg cr
[2022-05-07 12:36] LABS: TSH reflex Free T4 2.04 uIU/mL (0.32-4.0)
== END 2022-05-07 07:52 | disposition home or self-care (01) ==
LOC: HO.HMGCLDS 07:51
PROVIDERS: PCP Internal Medicine; Visit Provider Internal Medicine
DX: E03.9 Hypothyroidism, unspecified (principal); E11.9 Type 2 diabetes mellitus without complications; I10 Essential (primary) hypertension; I25.10 Atherosclerotic heart disease of native coronary artery without angina pectoris; I25.84 Coronary atherosclerosis due to calcified coronary lesion
CPT/HCPCS: 36415; 80053; 82043; 83036; 84443; 85025

== ENCOUNTER 2022-06-17 08:29 | Outpatient (REF) | payer OTHER, SELFPAY ==
[2022-06-17 11:54] LABS: Anion Gap 10 (12-20); Blood Urea Nitrogen 10 mg/dL (9-16); Calcium 9.5 mg/dL (8.4-10.2); Carbon Dioxide 31 mmol/L (22-29); Chloride 105 mmol/L (96-108); Estimated Glomerular Filt Rate > 60; Glucose Random 127 mg/dL (60-115); Potassium 3.9 mmol/L (3.3-5.1); Sodium 142 mmol/L (135-145)
== END 2022-06-17 08:30 | disposition home or self-care (01) ==
LOC: HO.HMGCLDS 08:29
PROVIDERS: PCP Internal Medicine; Visit Provider Nurse Practitioner Family
DX: I25.10 Atherosclerotic heart disease of native coronary artery without angina pectoris (principal); I25.84 Coronary atherosclerosis due to calcified coronary lesion
CPT/HCPCS: 36415; 80048

== ENCOUNTER 2022-06-20 08:42 | Outpatient (REF) | payer OTHER, SELFPAY ==
--- NOTE | ~2022-06-20 | MM_ITS ---
EXAMINATION: MM SCREENING DIGITAL BREAST TOMOSYNTHESIS, BILATERAL CLINICAL INFORMATION: Screening. Asymptomatic. Benign right stereotactic biopsy 06/26/2021 (fibroadenomatous change and calcifications. No atypia or malignancy). The lifetime risk of breast cancer based on the Tyrer-Cuzick Model is 6%. COMPARISON: Mammography: 06/26/2021, 06/25/2021, 06/14/2021, 06/04/2020, 04/11/2019 TECHNIQUE: Digital breast tomosynthesis is performed in both the craniocaudal and mediolateral oblique views along with computer-aided detection (CAD). Synthesized 2D images are generated from the tomosynthesis. FINDINGS: The breasts are heterogeneously dense, which may obscure small masses (ACR BI-RADS breast composition Category c). There are no significant masses, abnormal calcifications, or other abnormalities. Parenchymal pattern is similar to prior studies. There is no developing density or architectural abnormality. There are biopsy clip markers again seen mid central 12:00 left breast and mid to posterior 12:00 right breast. The axilla and skin contours are unremarkable. No significant changes. MM/MM tomosynthesis screening BI IMPRESSION: No mammographic evidence of malignancy. ASSESSMENT: BI-RADS 2: Benign RECOMMENDATION: Routine annual mammography screening. This patient's information was entered into a reminder system with a target due date for their next mammogram.
== END 2022-06-20 08:43 | disposition home or self-care (01) ==
LOC: HO.MAMMO 08:42
PROVIDERS: PCP Internal Medicine; Visit Provider Internal Medicine
DX: Z12.31 Encounter for screening mammogram for malignant neoplasm of breast (principal)
CPT/HCPCS: 77063; 77067

== ENCOUNTER 2022-07-17 08:22 | Outpatient (REF) | payer OTHER, SELFPAY ==
[2022-07-17 11:41] LABS: MANUAL DIFF FLAG NO
[2022-07-17 11:54] LABS: Basophils Absolute Auto 0.1 X10*3/uL (0.0-0.2); Eosinophils Absolute Auto 0.5 X10*3/uL (0.0-0.4); Eosinophils Percent Auto 9.7 % (0-4); Hematocrit 46.8 % (37.0-47.0); Hemoglobin 15.3 g/dl (12.0-16.0); Imm Gran Abs Auto 0.01 X10*3/uL (0.00-0.03); Imm Gran Pct Auto 0.2 % (0.0-0.4); Lymphocytes Absolute Auto 1.9 X10*3/uL (1.2-4.9); Lymphocytes Percent Auto 36.1 % (20-40); Mean Corpuscular HGB Conc 32.7 g/dl (31.0-35.0); Mean Corpuscular Hemoglobin 30.4 pg (27.0-33.0); Monocytes Absolute Auto 0.4 X10*3/uL (0.1-1.2); Monocytes Percent Auto 7.2 % (2-11); Neutrophils Absolute Auto 2.4 x10*3/uL (2.0-8.3); Neutrophils Percent Auto 45.8 % (45-73); Platelet Count 197 X10*3/uL (160-400); Red Blood Count 5.03 X10*6/uL (4.20-5.50); Red Cell Distribution Width 13.1 % (11.0-16.0); White Blood Count 5.3 X10*3/uL (4.8-10.8)
[2022-07-17 12:22] LABS: Alanine Aminotransferase 37 U/L (0-31); Albumin Level 4.2 g/dL (3.5-5.0); Alkaline Phosphatase 58 U/L (39-117); Anion Gap 11 (12-20); Aspartate Amino Transferase 31 U/L (5-31); Blood Urea Nitrogen 10 mg/dL (9-16); Calcium 9.8 mg/dL (8.4-10.2); Carbon Dioxide 29 mmol/L (22-29); Chloride 106 mmol/L (96-108); Cholesterol 117 mg/dL; Estimated Glomerular Filt Rate > 60; Glucose Fasting 118 mg/dL (60-99); HDL Cholesterol 56 mg/dL; LDL Cholesterol Calculated 48 mg/dl; Potassium 4.9 mmol/L (3.3-5.1); Sodium 141 mmol/L (135-145); Triglycerides 65 mg/dL
[2022-07-17 12:23] LABS: Creatinine Urine 170.22 mg/dL; Microalbum/Creatinine Ratio Ur 20.5 ug/mg cr
[2022-07-17 12:24] LABS: Estimated Average Glucose 111 mg/dL; Hemoglobin A1c % 5.5 %
== END 2022-07-17 08:23 | disposition home or self-care (01) ==
LOC: HO.HMGCLDS 08:22
PROVIDERS: PCP Internal Medicine; Visit Provider Internal Medicine
DX: E11.9 Type 2 diabetes mellitus without complications (principal); E78.5 Hyperlipidemia, unspecified; I10 Essential (primary) hypertension
CPT/HCPCS: 36415; 80053; 80061; 82043; 83036; 85025

== ENCOUNTER → 2022-07-22 13:59 | Outpatient (BNVA) | payer OTHER, SELFPAY | PROVIDERS: PCP Internal Medicine; Referring Provider Internal Medicine; Visit Provider Nurse Practitioner Family ==

== ENCOUNTER 2022-08-19 09:41 | Outpatient (AMB) | payer OTHER, SELFPAY ==
--- NOTE | 2022-08-19 09:36 | A.OFFPC_ITS ---
Vital Signs 08/19/22 09:37 Height 5 ft 5 in Weight 160 lb BMI 26.6 BP 110/64 Blood Pressure Location Lt brachial Position Sitting Pulse 95 Pulse Source Pulse Oximeter Pulse Oximetry (%) 97 Oxygen Delivery Method Room Air Intake Visit Reasons: 1 month follow up Intake Note: Pt is here today for 1 month follow up visit on BP. Allergies No Known Allergies Allergy (Verified 07/22/22 14:19) Medication List - Last Reconciled 08/19/22 by Tiffany Stringer MD aspirin (Adult Aspirin Regimen) 81 mg PO DAILY levothyroxine 125 mcg PO DAILY losartan 25 mg PO DAILY metoprolol succinate ER 50 mg PO DAILY metoprolol succinate ER (Toprol XL) 25 mg PO DAILY omeprazole 10 mg PO DAILY rosuvastatin 10 mg PO DAILY Tobacco use date assessed: 08/19/22 Dental Screening Dental Screen Date: 08/19/22 Did you have a dental visit in the last 12 months?: Yes Did you have a dental problem in the last 6 months where you did not have access to dental care?: No Was dental information given to patient?: Patient has dentist HPI 1 month follow up HPI Details Pt presents for f/u no hypertension hyperlipidemia. CT coronary angiogram revealed moderate calcified plaque in the proximal to mid LAD and the distal mild calcification in left main but no significant stenosis. Crestor dose was decreased to 10 mg by cardiology. Hypertension is controlled on current medications. Patient has been walking 5 times a week. FOR[facility]LY [facility], LATER [facility] Medical History Annual physical exam Asthma Breast calcification, right COVID-19 Dysplastic nevi Gastric polyp GERD (gastroesophageal reflux disease) HTN (hypertension) Hypothyroidism Microscopic hematuria Normal breast exam Tachycardia Type 2 diabetes mellitus Surgical History H/O colonoscopy History of hysteroscopy Family History Father CAD (coronary artery disease) Social History Housing: House Alcohol intake: current Alcohol intake frequency: 0-2 drinks per day Alcohol type: wine Patient Tobacco Use Status: Never used Tobacco Second Hand Smoke Exposure: No Current occupational status: retired Cognitive needs: No Hearing needs: No Vision needs: Yes Questionnaire Thrive Questionnaire Date Thrive assessed: 05/05/22 PTAT-7 AMB Questionnaire PATT-7 Date PATT - 7 assessed: 05/05/22 Source: Developed by Drs. Isiah Bingham, Sherri Lawler, Shashi May and colleagues, with an educational madelyn from [employer]. Review of Systems Const All systems reviewed & are unremarkable except as noted in HPI and below Reports no additional complaints Eyes Reports no additional complaints ENT Reports no additional complaints Card Reports no additional complaints Resp Reports no additional complaints GI Reports no additional complaints Physical exam (Primary Care) Vital Signs: Last Vital Signs Pulse 95 08/19/22 09:37 BP 110/64 08/19/22 09:37 Pulse Ox 97 08/19/22 09:37 Oxygen Delivery Method Room Air 08/19/22 09:37 BMI result Body Mass Index 26.6 Tobacco/Smoking Status: Tobacco use Status Tobacco use date assessed 08/19/22 08/19/22 09:48 Patient Tobacco Use Status Never used Tobacco 08/19/22 09:36 Thrive Assessment: Date of Thrive Assessment Date Thrive assessed 05/05/22 08/19/22 09:36 Const General: no acute distress HENMT Face and sinus: Yes normal facial exam Resp Effort & Inspection: normal respiratory effort Auscultation: clear to auscultation bilaterally Cardio Rhythm: regular rhythm Heart sounds: S1 normal heart sound present and S2 normal heart sound present Assessment and Plan Assessment & Plan (1) Hyperlipidemia: Code(s): E78.5 - Hyperlipidemia, unspecified Plan: Continue statin, check lipid profile in 3 months (2) CAD (coronary artery disease): Comment: CT coronary angiogram 08/01: distal mild calcification in left main, moderate calcified plaque in proximal to mid LAD less than 40% stenosis Code(s): I25.10 - Atherosclerotic heart disease of [place] coronary artery without angina pectoris Plan: Continue current treatment (3) Type 2 diabetes mellitus: Comment: diet controlled, A1C 6.1 05/01, Code(s): E11.9 - Type 2 diabetes mellitus without complications Plan: Continue ADA diet, pt will return for physical in December with fasting labs before Orders: Orders Comprehensive [place]. Panel Fast 3 Months E11.9 - Type 2 diabetes mellitus without complications, E78.5 - Hyperlipidemia, unspecified, I25.10 - Atherosclerotic heart disease of [place] coronary artery without angina pectoris Hemoglobin A1c 3 Months E11.9 - Type 2 diabetes mellitus without complications, E78.5 - Hyperlipidemia, unspecified, I25.10 - Atherosclerotic heart disease of [place] coronary artery without angina pectoris Lipid Panel 3 Months E11.9 - Type 2 diabetes mellitus without complications, E78.5 - Hyperlipidemia, unspecified, I25.10 - Atherosclerotic heart disease of [place] coronary artery without angina pectoris Microalbumin, Random (w Creat) 3 Months E11.9 - Type 2 diabetes mellitus without complications, E78.5 - Hyperlipidemia, unspecified, I25.10 - Atherosclerotic heart disease of [place] coronary artery without angina pectoris Complete Blood Count Auto Diff 3 Months E11.9 - Type 2 diabetes mellitus without complications, E78.5 - Hyperlipidemia, unspecified, I25.10 - Atherosclerotic heart disease of [place] coronary artery without angina pectoris TSH reflex Free T4 3 Months E11.9 - Type 2 diabetes mellitus without complications, E78.5 - Hyperlipidemia, unspecified, I25.10 - Atherosclerotic heart disease of [place] coronary artery without angina pectoris Medications: Changed From losartan 50 mg PO DAILY 90 tabs 3RF To losartan 25 mg PO DAILY Coding Level of Care Code Est Pt Level 4 (63353) Diagnoses Hyperlipidemia E78.5 CAD (coronary artery disease) I25.10 Type 2 diabetes mellitus E11.9
[2022-08-19 09:37] VITALS: BP 110/64; PULSE 95; O2SAT 97; BMI 26.6
== END 2022-08-19 10:30 | disposition home or self-care (01) ==
LOC: HO.HMGC 09:41
PROVIDERS: PCP Internal Medicine; Visit Provider Internal Medicine
DX: E78.5 Hyperlipidemia, unspecified (principal); I25.10 Atherosclerotic heart disease of native coronary artery without angina pectoris; E11.9 Type 2 diabetes mellitus without complications
CPT/HCPCS: 99214

== ENCOUNTER 2022-12-01 08:28 | Outpatient (REF) | payer OTHER, SELFPAY ==
[2022-12-01 11:42] LABS: MANUAL DIFF FLAG NO
[2022-12-01 12:03] LABS: Estimated Average Glucose 114 mg/dL; Hemoglobin A1c % 5.6 % (<6.0)
[2022-12-01 12:17] LABS: Alanine Aminotransferase 38 U/L (0-31); Albumin Level 4.3 g/dL (3.5-5.0); Alkaline Phosphatase 48 U/L (39-117); Anion Gap 13 (12-20); Aspartate Amino Transferase 33 U/L (5-31); Bilirubin Total 0.9 mg/dL (0.0-1.0); Blood Urea Nitrogen 9 mg/dL (9-16); Calcium 9.7 mg/dL (8.4-10.2); Carbon Dioxide 27 mmol/L (22-29); Chloride 104 mmol/L (96-108); Cholesterol 124 mg/dL (<200); Creatinine Urine 111.03 mg/dL; Estimated Glomerular Filt Rate > 60; Glucose Fasting 107 mg/dL (60-99); HDL Cholesterol 64 mg/dL (>40); LDL Cholesterol Calculated 48 mg/dL (<100); Microalbum/Creatinine Ratio Ur 10.8 ug/mg cr (<30); Potassium 3.9 mmol/L (3.3-5.1); Sodium 140 mmol/L (135-145); Total Protein 7.1 g/dL (6.5-8.0); Triglycerides 63 mg/dL (<150)
[2022-12-01 12:23] LABS: TSH reflex Free T4 1.59 uIU/mL (0.32-4.0)
[2022-12-01 12:25] LABS: Basophils Absolute Auto 0.1 X10*3/uL (0.0-0.2); Eosinophils Absolute Auto 0.4 X10*3/uL (0.0-0.4); Eosinophils Percent Auto 6.7 % (0-4); Hematocrit 43.7 % (37.0-47.0); Hemoglobin 14.4 g/dl (12.0-16.0); Imm Gran Abs Auto 0.02 X10*3/uL (0.00-0.03); Imm Gran Pct Auto 0.4 % (0.0-0.4); Lymphocytes Absolute Auto 1.8 X10*3/uL (1.2-4.9); Mean Corpuscular Hemoglobin 30.8 pg (27.0-33.0); Mean Corpuscular Volume 93.6 fL (80.0-98.0); Mean Platelet Volume 9.7 fL (9.4-12.3); Monocytes Absolute Auto 0.4 X10*3/uL (0.1-1.2); Monocytes Percent Auto 7.3 % (2-11); Neutrophils Absolute Auto 2.6 x10*3/uL (2.0-8.3); Neutrophils Percent Auto 50.6 % (45-73); Platelet Count 187 X10*3/uL (160-400); Red Blood Count 4.67 X10*6/uL (4.20-5.50); Red Cell Distribution Width 13.3 % (11.0-16.0); White Blood Count 5.2 X10*3/uL (4.8-10.8)
== END 2022-12-01 08:29 | disposition home or self-care (01) ==
LOC: HO.HMGCLDS 08:28
PROVIDERS: PCP Internal Medicine; Visit Provider Internal Medicine
DX: I25.10 Atherosclerotic heart disease of native coronary artery without angina pectoris (principal); E11.9 Type 2 diabetes mellitus without complications; E78.5 Hyperlipidemia, unspecified
CPT/HCPCS: 36415; 80053; 80061; 82043; 82570; 83036; 84443; 85025

== ENCOUNTER 2022-12-02 09:28 | Outpatient (AMB) | payer OTHER, SELFPAY ==
--- NOTE | 2022-12-02 09:30 | MHC.PC.OV ---
Vital Signs 12/02/22 09:31 Height 5 ft 5 in Weight 160 lb BMI 26.6 BP 108/74 Blood Pressure Location Lt brachial Position Sitting Pulse 80 Pulse Source Pulse Oximeter Pulse Oximetry (%) 97 Oxygen Delivery Method Room Air Intake Visit Reasons: PE Intake Note: Pt is here today for PE. Allergies No Known Allergies Allergy (Verified 12/02/22 09:37) Medication List - Last Reconciled 12/02/22 by Tiffany Stringer MD aspirin (Adult Aspirin Regimen) 81 mg PO DAILY levothyroxine 125 mcg PO DAILY losartan 25 mg PO DAILY metoprolol succinate ER 50 mg PO DAILY metoprolol succinate ER (Toprol XL) 25 mg PO DAILY omeprazole 10 mg PO DAILY rosuvastatin 10 mg PO DAILY Tobacco use date assessed: 12/02/22 Fall risk assessment: No Falls in past year Last assessed Fall Risk: 12/02/22 Dental Screening Dental Screen Date: 12/02/22 Did you have a dental visit in the last 12 months?: Yes Did you have a dental problem in the last 6 months where you did not have access to dental care?: No Was dental information given to patient?: Patient has dentist HPI PE HPI Details Pt presents for PE. [facility] Medical History Breast calcification, right Dysplastic nevi Normal breast exam Annual physical exam Tachycardia COVID-19 Type 2 diabetes mellitus Gastric polyp GERD (gastroesophageal reflux disease) Asthma Microscopic hematuria HTN (hypertension) Hypothyroidism Surgical History H/O colonoscopy History of hysteroscopy Family History Father CAD (coronary artery disease) Social History Housing: House Alcohol intake: current Alcohol intake frequency: 0-2 drinks per day Alcohol type: wine Patient Tobacco Use Status: Never used Tobacco Second Hand Smoke Exposure: No Current occupational status: retired Cognitive needs: No Hearing needs: No Vision needs: Yes Questionnaire Thrive Questionnaire Date Thrive assessed: 05/05/22 AUDIT C Alcohol Use Questionnaire (AUDIT-C) 1. How often do you have a drink containing alcohol?: Monthly or less 2. How many drinks containing alcohol do you have on a typical day when you are drinking?: 1 or 2 3. How often do you have six or more drinks on one occasion?: Never Total Score: 1 PATT-7 AMB Questionnaire PATT-7 Date PATT - 7 assessed: 05/05/22 Source: Developed by Drs. Isiah Bingham, Sherri Lawler, Shashi May and colleagues, with an educational madelyn from [employer]. Review of Systems Const All systems reviewed & are unremarkable except as noted in HPI and below Reports no additional complaints Eyes Reports no additional complaints ENT Reports no additional complaints Card Reports no additional complaints Resp Reports no additional complaints GI Reports no additional complaints Reports no additional complaints Physical exam (Primary Care) Vital Signs: Last Vital Signs Pulse 80 12/02/22 09:31 BP 108/74 12/02/22 09:31 Pulse Ox 97 12/02/22 09:31 Oxygen Delivery Method Room Air 12/02/22 09:31 BMI result Body Mass Index 26.6 Tobacco/Smoking Status: Tobacco use Status Tobacco use date assessed 12/02/22 12/02/22 09:37 Patient Tobacco Use Status Never used Tobacco 12/02/22 09:37 Thrive Assessment: Date of Thrive Assessment Date Thrive assessed 05/05/22 12/02/22 09:31 Const General: no acute distress HENMT Head: Yes normal to inspection General nose exam: Normal external nose present Throat: Yes posterior oropharynx normal Neck Neck: Yes no lymphadenopathy and Yes supple Resp Effort & Inspection: normal respiratory effort Auscultation: clear to auscultation bilaterally Cardio Rhythm: regular rhythm Heart sounds: S1 normal heart sound present and S2 normal heart sound present GI Inspection: Yes normal to inspection Palpation (GI): Soft to palpation Percussion: Yes normal to percussion Auscultation: normal bowel sounds Assessment and Plan Assessment & Plan (1) Elevated LFTs: Code(s): R79.89 - Other specified abnormal findings of blood chemistry Plan: Patient was advised to avoid alcohol, NSAIDs, processed high fructose foods. She will have a repeat LFTs in 1 month and liver ultrasound will be obtained to evaluate for fatty liver (2) Hyperlipidemia: Code(s): E78.5 - Hyperlipidemia, unspecified Plan: Patient will increase Crestor to 20 mg for high dose of statin for prevention of worsening coronary artery disease regardless of LDL (3) Annual physical exam: Code(s): Z00.00 - Encounter for general adult medical examination without abnormal findings Plan: Well-balanced diet regular physical activity weight loss discussed with the patient. She is up-to-date with mammogram colonoscopy and a Pap smear (4) Hypothyroidism: Comment: s/p Iodine tx for [place]ve disease Code(s): E03.9 - Hypothyroidism, unspecified Qualifiers: Hypothyroidism type: unspecified Qualified Code(s): E03.9 - Hypothyroidism, unspecified Plan: Monitor TSH (5) HTN (hypertension): Code(s): I10 - Essential (primary) hypertension Plan: Continue current medications (6) Type 2 diabetes mellitus: Comment: diet controlled, A1C 5.6, 12/01 Code(s): E11.9 - Type 2 diabetes mellitus without complications Plan: ADA diet increase exercise weight loss discussed with the patient , repeat A1c in 6 months Orders: Orders Liver Panel 1 Month R79.89 - Other specified abnormal findings of blood chemistry Comprehensive [place]. Panel Fast 6 Months E03.9 - Hypothyroidism, unspecified, E11.9 - Type 2 diabetes mellitus without complications, E78.5 - Hyperlipidemia, unspecified, I10 - Essential (primary) hypertension, R79.89 - Other specified abnormal findings of blood chemistry, Z00.00 - Encounter for general adult medical examination without abnormal findings Vitamin D 25-OH Total 6 Months E03.9 - Hypothyroidism, unspecified, E11.9 - Type 2 diabetes mellitus without complications, E78.5 - Hyperlipidemia, unspecified, R79.89 - Other specified abnormal findings of blood chemistry, Z00.00 - Encounter for general adult medical examination without abnormal findings US abdomen lopes w elastography Today R79.89 - Other specified abnormal findings of blood chemistry Hepatitis B,C Profile 1 Month R79.89 - Other specified abnormal findings of blood chemistry Lipid Panel 6 Months E03.9 - Hypothyroidism, unspecified, E11.9 - Type 2 diabetes mellitus without complications, E78.5 - Hyperlipidemia, unspecified, R79.89 - Other specified abnormal findings of blood chemistry, Z00.00 - Encounter for general adult medical examination without abnormal findings Complete Blood Count Auto Diff 6 Months E03.9 - Hypothyroidism, unspecified, E11.9 - Type 2 diabetes mellitus without complications, E78.5 - Hyperlipidemia, unspecified, R79.89 - Other specified abnormal findings of blood chemistry, Z00.00 - Encounter for general adult medical examination without abnormal findings Hemoglobin A1c 6 Months E03.9 - Hypothyroidism, unspecified, E11.9 - Type 2 diabetes mellitus without complications, E78.5 - Hyperlipidemia, unspecified, R79.89 - Other specified abnormal findings of blood chemistry, Z00.00 - Encounter for general adult medical examination without abnormal findings Microalbumin, Random (w Creat) 6 Months E03.9 - Hypothyroidism, unspecified, E11.9 - Type 2 diabetes mellitus without complications, E78.5 - Hyperlipidemia, unspecified, R79.89 - Other specified abnormal findings of blood chemistry, Z00.00 - Encounter for general adult medical examination without abnormal findings TSH reflex Free T4 6 Months E03.9 - Hypothyroidism, unspecified, E11.9 - Type 2 diabetes mellitus without complications, E78.5 - Hyperlipidemia, unspecified, R79.89 - Other specified abnormal findings of blood chemistry, Z00.00 - Encounter for general adult medical examination without abnormal findings Coding Level of Care Code Est Pt Prev Care 40-64y(77445) Diagnoses Elevated LFTs R79.89 Hyperlipidemia E78.5 Annual physical exam Z00.00 Hypothyroidism, unspecified type E03.9 Hypothyroidism type: unspecified HTN (hypertension) I10 Type 2 diabetes mellitus E11.9
[2022-12-02 09:31] VITALS: BP 108/74; PULSE 80; O2SAT 97; BMI 26.6
== END 2022-12-02 10:41 | disposition home or self-care (01) ==
PROVIDERS: Visit Provider Internal Medicine
DX: Z00.00 Encounter for general adult medical examination without abnormal findings (principal); E11.9 Type 2 diabetes mellitus without complications; R79.89 Other specified abnormal findings of blood chemistry; E78.5 Hyperlipidemia, unspecified; E03.9 Hypothyroidism, unspecified; I10 Essential (primary) hypertension
CPT/HCPCS: 99396

== ENCOUNTER 2023-01-06 08:09 | Outpatient (REF) | payer OTHER, SELFPAY ==
--- NOTE | ~2023-01-06 | US_ITS ---
EXAMINATION: US ABDOMEN LIMITED WITH LIVER ELASTOGRAPHY CLINICAL INFORMATION: Elevated liver function tests. COMPARISON: None available. TECHNIQUE: Real-time imaging of the abdominal viscera. Noninvasive ultrasound liver fibrosis assessment is performed using [employer] point quantification shear wave elastography (2D-SWE) with a C5-2 MHz transducer. Multiple elastography samples are obtained. FINDINGS: PANCREAS: Normal. The visualized pancreatic head and body are normal in appearance. The remainder of the pancreas is obscured from visualization by the overlying bowel gas. LIVER: The liver demonstrates normal size, contour and generally increased echogenicity. No focal lesion or intrahepatic biliary duct dilatation. The right lobe measures 14.0 cm in length. The left lobe measures 8.9 cm in length. Portal flow is towards the liver (hepatopetal). Shear wave liver elastography median stiffness is 1.27 m/s (reference: normal median stiffness is 1.3 m/s or less). IQR/median stiffness to assess sampling precision is 0.13 (reference: good quality data set is IQR/median stiffness of 0.15 or less). GALLBLADDER: Normal. The gallbladder is physiologically distended without evidence of stones, sludge, polyps, wall thickening or pericholecystic fluid. COMMON BILE DUCT: Normal in caliber measuring 0.4 cm in diameter. RIGHT KIDNEY: Normal. No hydronephrosis. No renal calculi or focal parenchymal lesions. The kidney measures 10.7 cm in maximum dimension. FREE FLUID: None. US/US abdomen lopes w elastography IMPRESSION: 1. There is generalized increase in hepatic echotexture, consistent with fatty infiltration or hepatocellular disease. Please correlate clinically. No focal hepatic mass or intrahepatic biliary dilatation is seen. 2. Liver elastography: In the absence of other known clinical signs, measurements rule out compensated advanced chronic liver disease. If there are known clinical signs, further testing may be needed for confirmation. REFERENCE: Society of Radiologists in Ultrasound Liver Stiffness Thresholds (2020): LIVER STIFFNESS THRESHOLDS: *Liver Stiffness equal or less than 1.3 m/s: High probability of being normal. *Liver Stiffness less than 1.7 m/s: In the absence of other known clinical signs, rules out compensated advanced chronic liver disease. *Liver Stiffness 1.7-2.1 m/s: Suggestive of compensated advanced chronic liver disease but need further test for confirmation. *Liver Stiffness over 2.1 m/s: Rules in compensated advanced chronic liver disease. *Liver Stiffness over 2.4 m/s: Suggestive of clinically significant portal hypertension. QUALITY OF DATA SET: *IQR/Median value equal or less than 0.15 implies a quality data set. *IQR/Median value over 0.15 implies a poor quality data set. SIGNIFICANT CHANGE FROM PRIOR EXAM: Significant change if liver stiffness measurement is 10% or greater from prior exam. OTHER CONSIDERATIONS: The stage of liver fibrosis may be overestimated in the setting of acute hepatitis, liver inflammation, elevated liver function tests, hepatic vascular congestion, obstructive cholestasis, non-fasting state, and infiltrative diseases such as amyloidosis and lymphoma. In some patients with NAFLD, the liver stiffness thresholds for compensated advanced chronic liver disease may be lower. In causes other than viral hepatitis and NAFLD, liver stiffness thresholds are not well established.
[2023-01-06 13:45] LABS: Alanine Aminotransferase 31 U/L (0-31); Albumin Level 4.1 g/dL (3.5-5.0); Alkaline Phosphatase 48 U/L (39-117); Aspartate Amino Transferase 29 U/L (5-31); Bilirubin Direct 0.2 mg/dL (0.0-0.5); Bilirubin Total 0.6 mg/dL (0.0-1.0); Total Protein 6.9 g/dL (6.5-8.0)
[2023-01-07 08:34] LABS: HBS Num1 0.29 mIU/mL (0-7.99); HBc Num1 0.09 S/CO (0.00-0.79); HBsAGNum1 0.41 S/CO (0.00-0.99); Hepatitis B Core Antibody Nonreactive (Nonreactive); Hepatitis B Surface Antigen Negative (Negative); ~HepC Num1 0.09 S/CO (0.00-0.79); ~Hepatitis B Surface Antibody NONREACTIVE (Nonreactive); ~Hepatitis C Antibody Nonreactive (Nonreactive)
== END 2023-01-06 08:10 | disposition home or self-care (01) ==
LOC: HO.US 08:09
PROVIDERS: PCP Internal Medicine; Visit Provider Internal Medicine
DX: R79.89 Other specified abnormal findings of blood chemistry (principal)
CPT/HCPCS: 36415; 76705; 76981; 80076; 86704; 86706; 86803; 87340

== ENCOUNTER 2023-04-27 11:03 | Outpatient (AMB) | payer MEDICARE, OTHER, SELFPAY ==
[2023-04-27 11:20] VITALS: BP 130/78; PULSE 89; O2SAT 96; BMI 26.3
--- NOTE | 2023-04-27 11:20 | A.OFFPC_ITS ---
Vital Signs 04/27/23 11:20 Height 5 ft 5 in Weight 158 lb BMI 26.3 BP 130/78 Blood Pressure Location Lt brachial Position Sitting Pulse 89 Pulse Source Pulse Oximeter Pulse Oximetry (%) 96 Oxygen Delivery Method Room Air Intake Visit Reasons: Asthma Intake Note: Pt is here today for a sick visit. Pt states that asthma is acting up she has been on albuterol for 4 weeks and its not helping. Allergies No Known Allergies Allergy (Verified 04/27/23 11:24) Medication List - Last Reconciled 04/27/23 by Tiffany Stringer MD albuterol sulfate 90 mcg/actuation 2 puffs inhalation Q6H PRN aspirin (Adult Aspirin Regimen) 81 mg PO DAILY levothyroxine 125 mcg PO DAILY losartan 25 mg PO DAILY metoprolol succinate ER 50 mg PO DAILY metoprolol succinate ER (Toprol XL) 25 mg PO DAILY omeprazole 10 mg PO DAILY rosuvastatin 10 mg PO DAILY Tobacco use date assessed: 04/27/23 Fall risk assessment: No Falls in past year Last assessed Fall Risk: 04/27/23 Dental Screening Dental Screen Date: 04/27/23 Did you have a dental visit in the last 12 months?: Yes Did you have a dental problem in the last 6 months where you did not have access to dental care?: No Was dental information given to patient?: Patient has dentist HPI Asthma HPI Details Pt presents c/o 4 weeks of wheezing, dry cough since exposure to [place] pig 4 weeks ago. Patient has been taking albuterol at these 3 times a day with some relief. She also start using Flovent inhaler. Patient denies fever chills and hypertension is controlled on current medications. [facility] Medical History Breast calcification, right Dysplastic nevi Normal breast exam Annual physical exam Tachycardia COVID-19 Type 2 diabetes mellitus Gastric polyp GERD (gastroesophageal reflux disease) Asthma Microscopic hematuria HTN (hypertension) Hypothyroidism Surgical History H/O colonoscopy History of hysteroscopy Family History Father CAD (coronary artery disease) Social History Housing: House Alcohol intake: current Alcohol intake frequency: 0-2 drinks per day Alcohol type: wine Patient Tobacco Use Status: Never used Tobacco e-Cigarette/Vaping Use: Never Used Second Hand Smoke Exposure: No Current occupational status: retired Cognitive needs: No Hearing needs: No Vision needs: Yes Questionnaire Thrive Questionnaire Date Thrive assessed: 05/05/22 AUDIT C Alcohol Use Questionnaire (AUDIT-C) 1. How often do you have a drink containing alcohol?: 2-4 times a month 2. How many drinks containing alcohol do you have on a typical day when you are drinking?: 1 or 2 3. How often do you have six or more drinks on one occasion?: Never Total Score: 2 PATT-7 AMB Questionnaire PATT-7 Date PATT - 7 assessed: 05/05/22 Feeling nervous, anxious, or on edge: 0 = Not at all Not being able to stop or control worryin = Not at all Worrying too much about different things: 0 = Not at all Trouble relaxin = Not at all Being so restless that it is hard to sit still: 0 = Not at all Becoming easily annoyed or irritable: 0 = Not at all Feeling afraid as if something awful might happen: 0 = Not at all Total PATT-7 score (0-4 normal; 5-9 mild; 10-14 moderate; 15-21 severe): 0 Source: Developed by Drs. Isiah Bingham, Sherri Lawler, Shashi May and colleagues, with an educational madelyn from [employer]. Review of Systems Const All systems reviewed & are unremarkable except as noted in HPI and below Reports no additional complaints Eyes Reports no additional complaints ENT Reports no additional complaints Card Reports no additional complaints Resp Reports no additional complaints GI Reports no additional complaints Reports no additional complaints Musc Reports no additional complaints Physical exam (Primary Care) Vital Signs: Last Vital Signs Pulse 89 04/27/23 11:20 BP 130/78 04/27/23 11:20 Pulse Ox 96 04/27/23 11:20 Oxygen Delivery Method Room Air 04/27/23 11:20 BMI result Body Mass Index 26.3 Tobacco/Smoking Status: Tobacco use Status Tobacco use date assessed 04/27/23 04/27/23 11:26 Patient Tobacco Use Status Never used Tobacco 04/27/23 11:26 e-Cigarette/Vaping Use Never Used 04/27/23 11:26 Thrive Assessment: Date of Thrive Assessment Date Thrive assessed 05/05/22 04/27/23 11:26 Const General: no acute distress HENMT Mouth: Normal oral and palatal mucosa present Neck Neck: Yes no lymphadenopathy Resp Effort & Inspection: normal respiratory effort Auscultation: wheezes and diminished lung sounds Cardio Rhythm: regular rhythm Heart sounds: S1 normal heart sound present and S2 normal heart sound present Office Procedures Nebulizer Treatment Nebulizer Treatment [id number] RX initial, or Nebulizer Subsequent Treatment Office Meds albuterol sulfate 2.5 mg/3 mL (0.083 %) solution for nebulization Performing Provider: Tiffany Stringer MD Performing Location: [facility] Administered by: Leyda White RN on 04/27/23 12:07 Dose Route Admin Location Dispensed Lot Number Expiration Date NDC [employer] 2.5 mg inhalation 3 mL [id number] 03/12/24 15312-883-53 [employer] Assessment and Plan Assessment & Plan (1) Asthma: Comment: mild Code(s): J45.909 - Unspecified asthma, uncomplicated Plan: Prednisone 20 mg for 5 days is prescribed and patient will continue a steroid inhaler Pulmicort. Xopenex as prescribed instead of albuterol because of patient complained increased heart rate and palpitations on albuterol. Patient is living for [place] in 10 days she will follow-up after her or as needed Orders: Orders AMB Nebulizer Treatment Today J45.909 - Unspecified asthma, uncomplicated Medications: New budesonide 90 mcg/actuation (Pulmicort Flexhaler) 2 inhalations inhalation BID 1 ea 1RF levalbuterol tartrate 45 mcg/actuation (Xopenex HFA) 2 inhalations inhalation Q6H 15 grams 1RF Coding Level of Care Code Est Pt Level 3 (12033) Diagnoses Asthma J45.909 CPT Codes Nebulizer Treatment - Nebulizer Treatment, initial or subsequent: 00239- Nebulizer/MDI RX initial, or Nebulizer Subsequent Treatment ([id number])
== END 2023-04-27 12:19 | disposition home or self-care (01) ==
PROVIDERS: PCP Internal Medicine; Visit Provider Internal Medicine
DX: J45.909 Unspecified asthma, uncomplicated (principal)
CPT/HCPCS: 94640; 99213; J7613

== ENCOUNTER 2023-06-15 08:09 | Outpatient (REF) | payer MEDICARE, OTHER, SELFPAY ==
[2023-06-15 10:19] LABS: MANUAL DIFF FLAG NO
[2023-06-15 10:42] LABS: Basophils Absolute Auto 0.1 X10*3/uL (0.0-0.2); Basophils Percent Auto 1.1 % (0-2); Eosinophils Absolute Auto 0.3 X10*3/uL (0.0-0.4); Eosinophils Percent Auto 6.8 % (0-4); Hematocrit 45.4 % (37.0-47.0); Hemoglobin 14.7 g/dl (12.0-16.0); Imm Gran Abs Auto 0.02 X10*3/uL (0.00-0.03); Imm Gran Pct Auto 0.4 % (0.0-0.4); Lymphocytes Absolute Auto 1.6 X10*3/uL (1.2-4.9); Lymphocytes Percent Auto 33.8 % (20-40); Mean Corpuscular HGB Conc 32.4 g/dl (31.0-35.0); Mean Corpuscular Hemoglobin 31.1 pg (27.0-33.0); Mean Platelet Volume 9.5 fL (9.4-12.3); Monocytes Absolute Auto 0.4 X10*3/uL (0.1-1.2); Monocytes Percent Auto 9.6 % (2-11); Neutrophils Absolute Auto 2.2 x10*3/uL (2.0-8.3); Neutrophils Percent Auto 48.3 % (45-73); Platelet Count 193 X10*3/uL (160-400); Red Blood Count 4.73 X10*6/uL (4.20-5.50); Red Cell Distribution Width 13.5 % (11.0-16.0); White Blood Count 4.6 X10*3/uL (4.8-10.8)
[2023-06-15 10:50] LABS: Estimated Average Glucose 120 mg/dL; Hemoglobin A1C 151.0611 umol/L; Hemoglobin A1c % 5.8 % (<6.0)
[2023-06-15 11:02] LABS: Alanine Aminotransferase 27 U/L (0-31); Albumin Level 4.4 g/dL (3.5-5.0); Alkaline Phosphatase 47 U/L (39-117); Anion Gap 12 (12-20); Aspartate Amino Transferase 25 U/L (5-31); Bilirubin Total 0.8 mg/dL (0.0-1.0); Blood Urea Nitrogen 13 mg/dL (9-16); Calcium 10.2 mg/dL (8.4-10.2); Carbon Dioxide 30 mmol/L (22-29); Chloride 104 mmol/L (96-108); Cholesterol 123 mg/dL (<200); Estimated Glomerular Filt Rate > 60; Glucose Fasting 107 mg/dL (60-99); HDL Cholesterol 69 mg/dL (>40); LDL Cholesterol Calculated 45 mg/dL (<100); Potassium 4.2 mmol/L (3.3-5.1); Sodium 142 mmol/L (135-145); Total Protein 7.4 g/dL (6.5-8.0); Triglycerides 48 mg/dL (<150)
[2023-06-15 11:19] LABS: TSH reflex Free T4 0.34 uIU/mL (0.32-4.0); Vitamin D 25-OH Total 61.3 ng/mL (>30)
[2023-06-15 11:35] LABS: Creatinine Urine 131.58 mg/dL; Microalbum/Creatinine Ratio Ur 4.5 ug/mg cr (<30)
== END 2023-06-15 08:10 | disposition home or self-care (01) ==
LOC: HO.HMGCLDS 08:09
PROVIDERS: PCP Internal Medicine; Visit Provider Internal Medicine
DX: Z00.00 Encounter for general adult medical examination without abnormal findings (principal); R79.89 Other specified abnormal findings of blood chemistry; E78.5 Hyperlipidemia, unspecified; E03.9 Hypothyroidism, unspecified; E11.9 Type 2 diabetes mellitus without complications; I10 Essential (primary) hypertension
CPT/HCPCS: 36415; 80053; 80061; 82043; 82306; 82570; 83036; 84443; 85025

== ENCOUNTER 2023-06-17 10:09 | Outpatient (AMB) | payer MEDICARE, OTHER, SELFPAY ==
[2023-06-17 10:23] VITALS: BP 125/75; PULSE 83; O2SAT 98; BMI 27.0
--- NOTE | 2023-06-17 10:23 | A.OFFPC_ITS ---
Vital Signs 06/17/23 10:23 Height 5 ft 5 in Weight 162 lb BMI 27.0 BP 125/75 Blood Pressure Location Rt brachial Position Sitting Pulse 83 Pulse Source Pulse Oximeter Pulse Oximetry (%) 98 Oxygen Delivery Method Room Air Intake Visit Reasons: 6 month fu Intake Note: Pt is here today for 6 months follow up visit. Allergies No Known Allergies Allergy (Verified 06/17/23 10:34) Medication List - Last Reconciled 06/17/23 by Tiffany Stringer MD albuterol sulfate 90 mcg/actuation 2 puffs inhalation Q6H PRN aspirin (Adult Aspirin Regimen) 81 mg PO DAILY budesonide 90 mcg/actuation (Pulmicort Flexhaler) 2 inhalations inhalation BID clotrimazole 1% 1 appl topical BID levalbuterol tartrate 45 mcg/actuation (Xopenex HFA) 2 inhalations inhalation Q6H levothyroxine 125 mcg PO DAILY losartan 25 mg PO DAILY metoprolol succinate ER 50 mg PO DAILY metoprolol succinate ER (Toprol XL) 25 mg PO DAILY omeprazole 10 mg PO DAILY rosuvastatin 10 mg PO DAILY Tobacco use date assessed: 06/17/23 Fall risk assessment: No Falls in past year Last assessed Fall Risk: 06/17/23 Dental Screening Dental Screen Date: 06/17/23 Did you have a dental visit in the last 12 months?: Yes Did you have a dental problem in the last 6 months where you did not have access to dental care?: No Was dental information given to patient?: Patient has dentist HPI 6 month fu HPI Details Patient presents for the follow-up on hypertension hyperlipidemia hypothyroidism. Patient complains of rash on her torso started after wearing a wet bathing suit in [place] for 1 month. [facility] Medical History Breast calcification, right Dysplastic nevi Normal breast exam Annual physical exam Tachycardia COVID-19 Type 2 diabetes mellitus Gastric polyp GERD (gastroesophageal reflux disease) Asthma Microscopic hematuria HTN (hypertension) Hypothyroidism Surgical History H/O colonoscopy History of hysteroscopy Family History Father CAD (coronary artery disease) Social History Housing: House Alcohol intake: current Alcohol intake frequency: 0-2 drinks per day Alcohol type: wine Patient Tobacco Use Status: Never used Tobacco e-Cigarette/Vaping Use: Never Used Second Hand Smoke Exposure: No service: No Current occupational status: retired Cognitive needs: No Hearing needs: No Vision needs: Yes Questionnaire PHQ-9 Over the last 2 weeks, how often have you been bothered by any of the following problems? 1. Little interest or pleasure in doing things: not at all 2. Feeling down, depressed, or hopeless: not at all 3. Trouble falling or staying asleep, or sleeping too much: not at all 4. Feeling tired or having little energy: several days 5. Poor appetite or overeating: not at all 6. Feeling bad about yourself - or that you are a failure or have let yourself or your family down: not at all 7. Trouble concentrating on things, such as reading the newspaper or watching television: not at all 8. Moving or speaking so slowly that other people could have noticed. Or the opposite - being so fidgety or restless that you have been moving around a lot more than usual: not at all 9. Thoughts that you would be better off or of hurting yourself in some way: not at all Total score: 1 Depression Screening Interpretation: Negative Depression Screening Done: Yes Source: Developed by Drs. Isiah Bingham, Sherri Lawler, Shashi May and colleagues, with an educational madelyn from [facility]. Thrive Questionnaire Date Thrive assessed: 05/05/22 I am a: Patient What is your living situation today?: I have a steady place to live Within the past 12 months, did the food you bought not last and you didn't have the money to get more?: Never true Within the past 12 months, did you worry whether your food would run out before you got money to buy more?: Never true Do you have trouble paying for medicines?: No Do you have trouble getting transportation to medical appointments?: No Do you have trouble paying your heating and electricity bill?: No Do you have trouble taking care of your child, family member or friend?: No Do you have trouble with day-to-day activities such as bathing, preparing meals, shopping, managing finances, etc.?: No Are you currently unemployed and looking for a job?: No Are you interested in more education?: No Please select the resources that you would like help with: None THRIVE Score: 0 AUDIT C Alcohol Use Questionnaire (AUDIT-C) 1. How often do you have a drink containing alcohol?: 2-3 times a week 2. How many drinks containing alcohol do you have on a typical day when you are drinking?: 1 or 2 3. How often do you have six or more drinks on one occasion?: Never Total Score: 3 PATT-7 AMB Questionnaire PATT-7 Date PATT - 7 assessed: 06/17/23 Feeling nervous, anxious, or on edge: 0 = Not at all Not being able to stop or control worryin = Several days Worrying too much about different things: 0 = Not at all Trouble relaxin = Not at all Being so restless that it is hard to sit still: 0 = Not at all Becoming easily annoyed or irritable: 0 = Not at all Feeling afraid as if something awful might happen: 0 = Not at all Total PATT-7 score (0-4 normal; 5-9 mild; 10-14 moderate; 15-21 severe): 1 Source: Developed by Drs. Isiah Bingham, Sherri Lawler, Shashi May and colleagues, with an educational madelyn from [facility]. Review of Systems Const All systems reviewed & are unremarkable except as noted in HPI and below Eyes Reports no additional complaints ENT Reports no additional complaints Card Reports no additional complaints Resp Reports no additional complaints GI Reports no additional complaints Reports no additional complaints Physical exam (Primary Care) Vital Signs: Last Vital Signs Pulse 83 06/17/23 10:23 Pulse Ox 98 06/17/23 10:23 Oxygen Delivery Method Room Air 06/17/23 10:23 BMI result Body Mass Index 27.0 Tobacco/Smoking Status: Tobacco use Status Tobacco use date assessed 06/17/23 06/17/23 10:24 Patient Tobacco Use Status Never used Tobacco 06/17/23 10:24 e-Cigarette/Vaping Use Never Used 06/17/23 10:24 PHQ-9: PHQ-9 Score PHQ-9: Total score 1 06/17/23 10:37 Depression Screening Interpretation: Negative Thrive Assessment: Date of Thrive Assessment Date Thrive assessed 05/05/22 06/17/23 10:24 Const General: no acute distress HENMT Face and sinus: Yes normal facial exam Throat: Yes posterior oropharynx normal Neck Neck: Yes supple Resp Effort & Inspection: normal respiratory effort Auscultation: clear to auscultation bilaterally Cardio Rhythm: regular rhythm Heart sounds: S1 normal heart sound present and S2 normal heart sound present Skin Other: [place] round lesion with central clearing and some scaling on the abdomen and mid back Assessment and Plan Assessment & Plan (1) HTN (hypertension): Code(s): I10 - Essential (primary) hypertension Plan: Continue current medications stress management mindfulness and regular physical activity discussed with the patient. (2) Type 2 diabetes mellitus: Comment: diet controlled, A1C 5.6, 12/01 Code(s): E11.9 - Type 2 diabetes mellitus without complications Plan: A1c is 5.8, ADA diet regular exercise discussed with the patient follow-up in 6 months with a fasting labs before (3) Elevated LFTs: Code(s): R79.89 - Other specified abnormal findings of blood chemistry Plan: Patient was advised to avoid alcohol NSAIDs and high fructose foods (4) CAD (coronary artery disease): Comment: CT coronary angiogram 08/01: distal mild calcification in left main, moderate calcified plaque in proximal to mid LAD less than 40% stenosis Code(s): I25.10 - Atherosclerotic heart disease of [place] coronary artery without angina pectoris Plan: Continue Crestor follow-up with Cardiology (5) Hypothyroidism: Comment: s/p Iodine tx for [place] disease Code(s): E03.9 - Hypothyroidism, unspecified Qualifiers: Hypothyroidism type: unspecified Qualified Code(s): E03.9 - Hypothyroidism, unspecified Plan: Continue levothyroxine (6) Tinea corporis: Code(s): B35.4 - Tinea corporis Plan: 400 mg of ketoconazole for 1 week as prescribed Orders: Orders Hemoglobin A1c 6 Months E11.9 - Type 2 diabetes mellitus without complications, I10 - Essential (primary) hypertension, R79.89 - Other specified abnormal findings of blood chemistry Complete Blood Count Auto Diff 6 Months E11.9 - Type 2 diabetes mellitus without complications, I10 - Essential (primary) hypertension, R79.89 - Other specified abnormal findings of blood chemistry Microalbumin, Random (w Creat) 6 Months E11.9 - Type 2 diabetes mellitus without complications, I10 - Essential (primary) hypertension, R79.89 - Other specified abnormal findings of blood chemistry Comprehensive [place]. Panel Fast 6 Months E11.9 - Type 2 diabetes mellitus without complications, I10 - Essential (primary) hypertension, R79.89 - Other specified abnormal findings of blood chemistry Lipid Panel 6 Months E11.9 - Type 2 diabetes mellitus without complications, I10 - Essential (primary) hypertension, R79.89 - Other specified abnormal findings of blood chemistry TSH reflex Free T4 6 Months E11.9 - Type 2 diabetes mellitus without complications, I10 - Essential (primary) hypertension, R79.89 - Other specified abnormal findings of blood chemistry Referrals Cologuard Test Z12.11 - Encounter for screening for malignant neoplasm of colon, Z12.12 - Encounter for screening for malignant neoplasm of rectum Medications: New ketoconazole 400 mg (2 x 200 mg) PO DAILY 14 tabs 0RF Coding Level of Care Code Est Pt Level 4 (90004) Diagnoses HTN (hypertension) I10 Type 2 diabetes mellitus E11.9 Elevated LFTs R79.89 CAD (coronary artery disease) I25.10 Hypothyroidism, unspecified type E03.9 Hypothyroidism type: unspecified Tinea corporis B35.4
== END 2023-06-17 11:31 | disposition home or self-care (01) ==
PROVIDERS: PCP Internal Medicine; Visit Provider Internal Medicine
DX: I10 Essential (primary) hypertension (principal); E11.9 Type 2 diabetes mellitus without complications; R79.89 Other specified abnormal findings of blood chemistry; I25.10 Atherosclerotic heart disease of native coronary artery without angina pectoris; E03.9 Hypothyroidism, unspecified; B35.4 Tinea corporis
CPT/HCPCS: 99214

== ENCOUNTER 2023-06-23 08:36 | Outpatient (REF) | payer MEDICARE, OTHER, SELFPAY ==
--- NOTE | ~2023-06-23 | MM_ITS ---
EXAMINATION: BONE DENSITOMETRY CLINICAL INDICATION: Asymptomatic menopausal state. COMPARISON: Baseline BD dated 02/04/2011. TECHNIQUE: Using a [employer] DXA System (software version: 13.1) manufactured by [employer], dual-energy x-ray absorptiometry was performed of the lumbar spine and left hip. The images are of good technical quality. Summary results are attached. FINDINGS: LEFT FEMUR, NECK: Current: BMD 1.008 g/cm2, Z-score 1.1, T-score -0.2, normal. Baseline: BMD 1.093 g/cm2. LEFT FEMUR, TOTAL: Current: BMD 1.074 g/cm2, Z-score 1.5, T-score 0.5, normal, 6.9% decrease from baseline (<5% change is not significant). Baseline: BMD 1.153 g/cm2. AP SPINE L2-L4 (excluding L1): The data of L1-L4 has been changed to exclude the L1 vertebral body, because degenerative sclerosis at this level may cause overestimation of lumbar spine density. Current: BMD 1.088 g/cm2, Z-score 0.4, T-score -0.9, normal, 12.3% decrease from baseline (<5% change is not significant). Baseline: BMD 1.240 g/cm2. IDENTIFIED RISK FACTORS: Menopause, secondary osteoporosis (hyperthyroidism). HISTORY OF FRACTURE: None listed. MEDICATIONS: None listed. MM/XR DEXA axial skeleton IMPRESSION: 1. DIAGNOSIS: Normal bone density based on the lowest T-score value of -0.9 in the lumbar spine applying World Health Organization criteria. 2. 10-YEAR FRACTURE RISK PREDICTION, FRAX: According to the guidelines, FRAX calculation should only be performed on patients in the osteopenia bone density category. Therefore, FRAX was not performed on this patient. 3. Treatment Recommendations: NOF guidelines recommend consideration for treatment in postmenopausal women and men age 50 and older presenting with the following: -A hip or vertebral (clinical or morphometric) fracture. -T-score less than or equal to -2.5 at the femoral neck or spine after appropriate evaluation to exclude secondary causes. -Low bone mass at the hip or spine and a 10-year fracture probability by FRAX of greater than or equal to 3% for hip fracture or greater than or equal to 20% for major osteoporotic fracture based on the [place] adapted WHO algorithm. 4. Other Recommendations: All treatment decisions require clinical judgment and consideration of individual patient factors, including patient preferences, comorbidities, previous drug use, risk factors not captured in the FRAX model (e.g. frailty, falls, vitamin D deficiency, increased bone turnover, interval significant decline in bone density) and possible under or overestimation of fracture risk by FRAX. FUTURE SCAN RECOMMENDATION: People with diagnosed cases of osteoporosis or at high risk for fracture should have regular bone mineral density tests. For patients eligible for Medicare, routine testing is allowed once every 2 years. The testing frequency can be increased to one year for patients who have rapidly progressing disease, those who are receiving or discontinuing medical therapy to restore bone mass, or have additional risk factors.
--- NOTE | ~2023-06-23 | MM_ITS ---
EXAMINATION: MM SCREENING DIGITAL BREAST TOMOSYNTHESIS, BILATERAL CLINICAL INFORMATION: Screening. Asymptomatic. COMPARISON: Mammography: This study is compared with prior exams dating back to 2019. TECHNIQUE: Digital breast tomosynthesis is performed in both the craniocaudal and mediolateral oblique views along with computer-aided detection (CAD). Synthesized 2D images are generated from the tomosynthesis. FINDINGS: The breasts are heterogeneously dense, which may obscure small masses (ACR BI-RADS breast composition Category c). There are no significant masses, abnormal calcifications, or other abnormalities. There is a tissue marker present in the superior aspect of each breast from prior benign percutaneous biopsies. MM/MM tomosynthesis screening BI IMPRESSION: No mammographic evidence of malignancy. ASSESSMENT: BI-RADS BI-RADS 2 - Benign Findings RECOMMENDATION: Routine annual mammography screening. 1 year F/U This examination should not preclude the clinical evaluation of a suspicious palpable abnormality. This patient's information was entered into a reminder system with a target due date for their next mammogram.
== END 2023-06-23 08:37 | disposition home or self-care (01) ==
LOC: HO.MAMMO 08:36
PROVIDERS: PCP Internal Medicine; Visit Provider Internal Medicine
DX: Z12.31 Encounter for screening mammogram for malignant neoplasm of breast (principal); Z13.820 Encounter for screening for osteoporosis; Z78.0 Asymptomatic menopausal state
CPT/HCPCS: 77063; 77067; 77080

== ENCOUNTER → 2023-06-23 09:00 | Outpatient (BNV) | payer MEDICARE, OTHER, SELFPAY | PROVIDERS: PCP Internal Medicine; Visit Provider Radiology Diagnostic Radiology | DX: Z12.31 Encounter for screening mammogram for malignant neoplasm of breast (principal) | CPT/HCPCS: 77063; 77067 ==

== ENCOUNTER 2023-07-21 10:53 | Outpatient (AMB) | payer MEDICARE, OTHER, SELFPAY ==
[2023-07-21 10:57] VITALS: BP 130/72; PULSE 85; BMI 29.0
--- NOTE | 2023-07-21 10:57 | MHC.OFFVIS ---
Vital Signs 07/21/23 10:57 Height 5 ft 2 in Weight 158 lb 11.725 oz BMI 29.0 BP 130/72 Blood Pressure Location Lt brachial Position Sitting Pulse 85 Pulse Source Monitor Intake Visit Reasons: 1 yr f/up Allergies No Known Allergies Allergy (Verified 06/17/23 10:34) Medication List - Last Reconciled 07/21/23 by Theresa Morton, AUTOMATION DEVELOPER-C albuterol sulfate 90 mcg/actuation 2 puffs inhalation Q6H PRN aspirin (Adult Aspirin Regimen) 81 mg PO DAILY budesonide 90 mcg/actuation (Pulmicort Flexhaler) 2 inhalations inhalation BID clotrimazole 1% 1 appl topical BID ketoconazole 400 mg (2 x 200 mg) PO DAILY levalbuterol tartrate 45 mcg/actuation (Xopenex HFA) 2 inhalations inhalation Q6H levothyroxine 125 mcg PO DAILY losartan 25 mg PO DAILY metoprolol succinate ER 50 mg PO DAILY metoprolol succinate ER (Toprol XL) 25 mg PO DAILY omeprazole 10 mg PO DAILY rosuvastatin 10 mg PO DAILY HPI HPI 1 yr f/up: Details: Gretchen is a 63-year-old female with past medical history of hypertension, diabetes, who had tachycardia issues following COVID infection 2020, elevated coronary calcium score, CTA of the coronary arteries showing nonobstructive coronary artery disease who now presents for follow-up. Today she reports that she has been doing very well since her visit a year ago. She denies any chest discomfort, shortness of breath, palpitations, dizziness, presyncope, syncope, PND, orthopnea or edema. She does not engage in routine exercise. She takes her medications as directed. She has been traveling a lot with her . [facility] Medical History Breast calcification, right Dysplastic nevi Normal breast exam Annual physical exam Tachycardia COVID-19 Type 2 diabetes mellitus Gastric polyp GERD (gastroesophageal reflux disease) Asthma Microscopic hematuria HTN (hypertension) Hypothyroidism Surgical History H/O colonoscopy History of hysteroscopy Family History Father CAD (coronary artery disease) Social History Housing: House Alcohol intake: current Alcohol intake frequency: 0-2 drinks per day Alcohol type: wine Patient Tobacco Use Status: Never used Tobacco e-Cigarette/Vaping Use: Never Used Second Hand Smoke Exposure: No service: No Current occupational status: retired Cognitive needs: No Hearing needs: No Vision needs: Yes Review of Systems Const All systems reviewed & are unremarkable except as noted in HPI and below Denies weakness ENT Denies dizziness Card Denies chest pain, Denies chest pain with activity, Denies syncope, Denies rapid heart rate, Denies pedal edema, Denies edema, Denies leg edema, Denies lightheadedness, Denies palpitations, Denies dyspnea, Denies dyspnea on exertion and Denies orthopnea Resp Denies cough, Denies dyspnea and Denies dyspnea on exertion GI Denies hematochezia and Denies change in stool character Musc Denies abnormal gait, Denies muscle cramps, Denies muscle weakness, Denies numbness, Denies radiating pain into limb and Denies tingling Neuro Denies abnormal gait, Denies dizziness, Denies syncope, Denies numbness, Denies tingling and Denies weakness Endo Denies palpitations Physical Exam Vital Signs: Last Vital Signs Pulse 85 07/21/23 10:57 BP 130/72 07/21/23 10:57 BMI result Body Mass Index 29.0 Const General: cooperative, healthy appearing, comfortable and no acute distress Orientation/consciousness: patient oriented x3 Neck Neck: Yes normal visual inspection Resp Effort & Inspection: normal respiratory effort Auscultation: clear to auscultation bilaterally, no crackles, no rales, no rhonchi and no wheezes Cardio Jugular venous distension: no JVD Rate: regular rate Rhythm: regular rhythm Heart sounds: S1 normal heart sound present, S2 normal heart sound present, no murmurs and no rubs Neuro General: patient oriented x3 Extrem General: Yes normal to inspection Psych Appearance: grossly normal Mental Status: mental status grossly normal Speech and movement: Normal speech and movement present Office Procedures EKG Details: Today, read by me, normal sinus rhythm, no acute ST or T-wave abnormalities, rate 85, QTC 464 milliseconds [id number], Complete Assessment & Plan Assessment & Plan (1) CAD (coronary artery disease): Comment: CT coronary angiogram 08/01: distal mild calcification in left main, moderate calcified plaque in proximal to mid LAD less than 40% stenosis Code(s): I25.10 - Atherosclerotic heart disease of [place] coronary artery without angina pectoris Category: Medical Plan: Calcium score 453 on 04/28/2022. LAD 441, RCA 12. She has cardiac risk factors of diabetes and hypertension. She underwent a coronary CTA on 06/20/2022 showing left main distal mild calcification, no significant stenosis, lad moderate calcific plaque burden in the proximal to mid LAD with associated less than 40% stenosis, remainder of the LAD with no significant plaque or stenosis, left circumflex no significant plaque or stenosis, RCA no significant plaque or stenosis. Diagnosed with nonobstructive coronary artery disease. She has no reports of anginal symptoms. EKG done today showing normal sinus rhythm, no acute ST or T-wave abnormalities, rate 85. Discussed the need for ongoing risk factor modification. Reviewed need for good cholesterol, blood pressure control. Labs done on 06/15/2023 shows LDL 45, AST/ALT normal. She will continue on rosuvastatin 10 mg daily. She does report having muscle aches with higher dose statin. Continue aspirin, metoprolol and losartan. Blood pressure today 130/72. Discussed Signs and symptoms of angina. ED care if ever needed for concerning symptoms. Cardiology follow-up in 1 year, sooner if needed. (2) Coronary artery calcification: Code(s): I25.10 - Atherosclerotic heart disease of [place] coronary artery without angina pectoris; I25.84 - Coronary atherosclerosis due to calcified coronary lesion Category: Medical Plan: As above (3) Palpitations: Code(s): R00.2 - Palpitations Category: Medical Plan: Prior reports of heart palpitations following COVID infection. Treated for sinus tachycardia with rare isolated ectopy and brief atrial tach using metoprolol. Following start of metoprolol her palpitations resolved. Last echo done on 04/17/2020 showed EF 55-60%, no valve abnormalities and no wall motion abnormalities. No need to repeat at this time. Patient feels good. Continue metoprolol. (4) HTN (hypertension): Code(s): I10 - Essential (primary) hypertension Category: Medical Plan: Well controlled at present. Continue metoprolol and losartan (5) Hyperlipidemia: Code(s): E78.5 - Hyperlipidemia, unspecified Category: Medical Plan: [place] LDL goal less than 70 as above Plan Time spent on chart review, documentation, interview and assessment Coding Level of Care Code Est Pt Level 4 (19262) Diagnoses CAD (coronary artery disease) I25.10 Coronary artery calcification I25.10; I25.84 Palpitations R00.2 HTN (hypertension) I10 Hyperlipidemia E78.5 CPT Codes EKG - CPT: 24568-[id number], Complete ([id number]) Time Spent (min) 30
== END 2023-07-21 11:24 | disposition home or self-care (01) ==
PROVIDERS: PCP Internal Medicine; Visit Provider Nurse Practitioner Family
DX: I25.10 Atherosclerotic heart disease of native coronary artery without angina pectoris (principal); I25.84 Coronary atherosclerosis due to calcified coronary lesion; R00.2 Palpitations; I10 Essential (primary) hypertension; E78.5 Hyperlipidemia, unspecified
CPT/HCPCS: 93010; 99214

== ENCOUNTER → 2023-07-21 10:53 | Outpatient (BNVA) | payer MEDICARE, OTHER, SELFPAY | PROVIDERS: PCP Internal Medicine; Visit Provider Nurse Practitioner Family | DX: I25.10 Atherosclerotic heart disease of native coronary artery without angina pectoris (principal); I25.84 Coronary atherosclerosis due to calcified coronary lesion; R00.2 Palpitations; I10 Essential (primary) hypertension; E78.5 Hyperlipidemia, unspecified; Z79.82 Long term (current) use of aspirin; Z79.899 Other long term (current) drug therapy | CPT/HCPCS: 93005 ==

== ENCOUNTER 2023-12-21 07:39 | Outpatient (REF) | payer MEDICARE, OTHER, SELFPAY ==
[2023-12-21 10:11] LABS: MANUAL DIFF FLAG NO
[2023-12-21 10:19] LABS: Basophils Absolute Auto 0.1 X10*3/uL (0.0-0.2); Eosinophils Absolute Auto 0.4 X10*3/uL (0.0-0.4); Eosinophils Percent Auto 7.9 % (0-4); Hematocrit 44.4 % (37.0-47.0); Hemoglobin 14.8 g/dl (12.0-16.0); Imm Gran Abs Auto 0.02 X10*3/uL (0.00-0.03); Imm Gran Pct Auto 0.4 % (0.0-0.4); Lymphocytes Percent Auto 38.2 % (20-40); Mean Corpuscular HGB Conc 33.3 g/dl (31.0-35.0); Mean Corpuscular Hemoglobin 30.9 pg (27.0-33.0); Mean Corpuscular Volume 92.7 fL (80.0-98.0); Mean Platelet Volume 9.6 fL (9.4-12.3); Monocytes Absolute Auto 0.4 X10*3/uL (0.1-1.2); Monocytes Percent Auto 7.9 % (2-11); Neutrophils Absolute Auto 2.3 x10*3/uL (2.0-8.3); Neutrophils Percent Auto 44.6 % (45-73); Platelet Count 192 X10*3/uL (160-400); Red Blood Count 4.79 X10*6/uL (4.20-5.50); Red Cell Distribution Width 12.9 % (11.0-16.0); White Blood Count 5.2 X10*3/uL (4.8-10.8)
[2023-12-21 10:48] LABS: Alanine Aminotransferase 36 U/L (0-31); Albumin Level 4.2 g/dL (3.5-5.0); Alkaline Phosphatase 43 U/L (39-117); Anion Gap 10 (12-20); Aspartate Amino Transferase 31 U/L (5-31); Bilirubin Total 0.8 mg/dL (0.0-1.0); Blood Urea Nitrogen 10 mg/dL (9-16); Calcium 9.5 mg/dL (8.4-10.2); Carbon Dioxide 29 mmol/L (22-29); Chloride 106 mmol/L (96-108); Cholesterol 125 mg/dL (<200); Estimated Glomerular Filt Rate > 60; Glucose Fasting 110 mg/dL (60-99); HDL Cholesterol 63 mg/dL (>40); LDL Cholesterol Calculated 47 mg/dL (<100); Potassium 3.9 mmol/L (3.3-5.1); Sodium 141 mmol/L (135-145); Total Protein 7.1 g/dL (6.5-8.0); Triglycerides 77 mg/dL (<150)
[2023-12-21 10:56] LABS: Estimated Average Glucose 123 mg/dL; Hemoglobin A1c % 5.9 % (<6.0)
[2023-12-21 10:59] LABS: Creatinine Urine 188.26 mg/dL; Microalbum/Creatinine Ratio Ur 8.4 ug/mg cr (<30)
[2023-12-21 11:23] LABS: TSH reflex Free T4 1.09 uIU/mL (0.32-4.0)
== END 2023-12-21 07:40 | disposition home or self-care (01) ==
LOC: HO.HMGCLDS 07:39
PROVIDERS: PCP Internal Medicine; Visit Provider Internal Medicine
DX: R79.89 Other specified abnormal findings of blood chemistry (principal); I10 Essential (primary) hypertension; E11.9 Type 2 diabetes mellitus without complications
CPT/HCPCS: 36415; 80053; 80061; 82043; 82570; 83036; 84443; 85025

== ENCOUNTER 2023-12-24 08:26 | Outpatient (AMB) | payer MEDICARE, OTHER, SELFPAY ==
[2023-12-24 08:29] VITALS: BP 118/80; PULSE 89; O2SAT 98; BMI 29.3
--- NOTE | 2023-12-24 08:29 | MHC.PC.OV ---
Vital Signs 12/24/23 08:29 Height 5 ft 2 in Weight 160 lb BMI 29.3 BP 118/80 Blood Pressure Location Lt brachial Position Sitting Pulse 89 Pulse Source Pulse Oximeter Pulse Oximetry (%) 98 Oxygen Delivery Method Room Air Intake Visit Reasons: Annual PE Intake Note: Pt is here today for PE. Allergies No Known Allergies Allergy (Verified 12/24/23 08:29) Medication List - Last Reconciled 12/24/23 by Tiffany Stringer MD albuterol sulfate 90 mcg/actuation 2 puffs inhalation Q6H PRN aspirin (Adult Aspirin Regimen) 81 mg PO DAILY budesonide 90 mcg/actuation (Pulmicort Flexhaler) 2 inhalations inhalation BID clotrimazole 1% 1 appl topical BID ketoconazole 400 mg (2 x 200 mg) PO DAILY levalbuterol tartrate 45 mcg/actuation (Xopenex HFA) 2 inhalations inhalation Q6H levothyroxine 125 mcg PO DAILY losartan 25 mg PO DAILY metoprolol succinate ER 50 mg PO DAILY metoprolol succinate ER (Toprol XL) 25 mg PO DAILY omeprazole 10 mg PO DAILY rosuvastatin 10 mg PO DAILY Tobacco use date assessed: 12/24/23 Fall risk assessment: No Falls in past year Last assessed Fall Risk: 12/24/23 Dental Screening Dental Screen Date: 06/17/23 HPI Annual PE HPI Details Pt presents for PE. [facility] Medical History Breast calcification, right Dysplastic nevi Normal breast exam Annual physical exam Tachycardia COVID-19 Type 2 diabetes mellitus Gastric polyp GERD (gastroesophageal reflux disease) Asthma Microscopic hematuria HTN (hypertension) Hypothyroidism Surgical History H/O colonoscopy History of hysteroscopy Family History Father CAD (coronary artery disease) Social History Housing: House Alcohol intake: current Alcohol intake frequency: 0-2 drinks per day Alcohol type: wine Patient Tobacco Use Status: Never used Tobacco e-Cigarette/Vaping Use: Never Used Second Hand Smoke Exposure: No service: No Current occupational status: retired Cognitive needs: No Hearing needs: No Vision needs: Yes Questionnaire PHQ-9 Over the last 2 weeks, how often have you been bothered by any of the following problems? 1. Little interest or pleasure in doing things: not at all 2. Feeling down, depressed, or hopeless: not at all 3. Trouble falling or staying asleep, or sleeping too much: not at all 4. Feeling tired or having little energy: not at all 5. Poor appetite or overeating: not at all 6. Feeling bad about yourself - or that you are a failure or have let yourself or your family down: not at all 7. Trouble concentrating on things, such as reading the newspaper or watching television: not at all 8. Moving or speaking so slowly that other people could have noticed. Or the opposite - being so fidgety or restless that you have been moving around a lot more than usual: not at all 9. Thoughts that you would be better off or of hurting yourself in some way: not at all Total score: 0 Depression Screening Interpretation: Negative Depression Screening Done: Yes 78165 - PHQ-9 Billing: Yes Source: Developed by Drs. Isiah Bingham, Sherri Lawler, Shashi May and colleagues, with an educational madelyn from [employer]. Thrive Questionnaire Date Thrive assessed: 05/05/22 I am a: Patient What is your living situation today?: I have a steady place to live Within the past 12 months, did the food you bought not last and you didn't have the money to get more?: Never true Within the past 12 months, did you worry whether your food would run out before you got money to buy more?: Never true Do you have trouble paying for medicines?: No Do you have trouble getting transportation to medical appointments?: No Do you have trouble paying your heating and electricity bill?: No Do you have trouble taking care of your child, family member or friend?: No Do you have trouble with day-to-day activities such as bathing, preparing meals, shopping, managing finances, etc.?: No Are you currently unemployed and looking for a job?: No Are you interested in more education?: No Please select the resources that you would like help with: None Currently or been in a relationship where the following occur: No concerns reported THRIVE Score: 0 AUDIT C Alcohol Use Questionnaire (AUDIT-C) 1. How often do you have a drink containing alcohol?: 2-3 times a week 2. How many drinks containing alcohol do you have on a typical day when you are drinking?: 1 or 2 3. How often do you have six or more drinks on one occasion?: Never Total Score: 3 PATT-7 AMB Questionnaire PATT-7 Date PATT - 7 assessed: 06/17/23 Feeling nervous, anxious, or on edge: 0 = Not at all Not being able to stop or control worryin = Not at all Worrying too much about different things: 0 = Not at all Trouble relaxin = Not at all Being so restless that it is hard to sit still: 0 = Not at all Becoming easily annoyed or irritable: 0 = Not at all Feeling afraid as if something awful might happen: 0 = Not at all Total PATT-7 score (0-4 normal; 5-9 mild; 10-14 moderate; 15-21 severe): 0 Source: Developed by Drs. Isiah Bingham, hSerri Lawler, Shashi May and colleagues, with an educational madelyn from [employer]. Review of Systems Const All systems reviewed & are unremarkable except as noted in HPI and below Reports no additional complaints Eyes Reports no additional complaints ENT Reports no additional complaints Card Reports no additional complaints Resp Reports no additional complaints GI Reports no additional complaints Reports no additional complaints Physical exam (Primary Care) Vital Signs: Last Vital Signs Pulse 89 12/24/23 08:29 BP 118/80 12/24/23 08:29 Pulse Ox 98 12/24/23 08:29 Oxygen Delivery Method Room Air 12/24/23 08:29 BMI result Body Mass Index 29.3 Tobacco/Smoking Status: Tobacco use Status Tobacco use date assessed 12/24/23 12/24/23 08:29 Patient Tobacco Use Status Never used Tobacco 12/24/23 08:29 e-Cigarette/Vaping Use Never Used 12/24/23 08:29 PHQ-9: PHQ-9 Score PHQ-9: Total score 0 12/24/23 08:29 Depression Screening Interpretation: Negative Thrive Assessment: Date of Thrive Assessment Date Thrive assessed 05/05/22 12/24/23 08:29 Currently or been in a relationship where the following occur: No concerns reported Const General: no acute distress HENMT Head: Yes normal to inspection Ears: hearing grossly normal bilaterally Face and sinus: Yes normal facial exam Mouth: Normal oral and palatal mucosa present Throat: Yes posterior oropharynx normal Eyes General: appearance normal, both eyes and all related structures Resp Effort & Inspection: normal respiratory effort Auscultation: clear to auscultation bilaterally Cardio Rhythm: regular rhythm Heart sounds: S1 normal heart sound present and S2 normal heart sound present GI Inspection: Yes normal to inspection Palpation (GI): Soft to palpation Percussion: Yes normal to percussion Auscultation: normal bowel sounds Coding Level of Care Code Est Pt Prev Care >65y(76783) Diagnoses Hyperlipidemia E78.5 Annual physical exam Z00.00 Asthma J45.909 HTN (hypertension) I10 Type 2 diabetes mellitus E11.9 Additional Codes PHQ-9 - 90103 - PHQ-9 Billing: Yes ([id number]) Assessment & Plan Assessment & Plan (1) Hyperlipidemia: Code(s): E78.5 - Hyperlipidemia, unspecified Category: Medical Plan: Continue statin (2) Annual physical exam: Code(s): Z00.00 - Encounter for general adult medical examination without abnormal findings Category: Medical Plan: Well-balanced diet regular physical activity discussed with the patient she is up-to-date with mammogram had normal DEXA in June, negative Cologuard this year (3) Asthma: Comment: mild Code(s): J45.909 - Unspecified asthma, uncomplicated Category: Medical Plan: Uses albuterol as needed (4) HTN (hypertension): Code(s): I10 - Essential (primary) hypertension Category: Medical Plan: Continue current medications (5) Type 2 diabetes mellitus: Comment: diet controlled, A1C 5.6, 12/01 Code(s): E11.9 - Type 2 diabetes mellitus without complications Category: Medical Plan: A1c is 5.9, ADA diet regular exercise discussed with the patient. follow-up in 6 months with a fasting labs before Orders: Orders Comprehensive [place]. Panel Fast 6 Months E03.9 - Hypothyroidism, unspecified, E11.9 - Type 2 diabetes mellitus without complications, E78.5 - Hyperlipidemia, unspecified, I10 - Essential (primary) hypertension Complete Blood Count Auto Diff 6 Months E03.9 - Hypothyroidism, unspecified, E11.9 - Type 2 diabetes mellitus without complications, E78.5 - Hyperlipidemia, unspecified, I10 - Essential (primary) hypertension Hemoglobin A1c 6 Months E03.9 - Hypothyroidism, unspecified, E11.9 - Type 2 diabetes mellitus without complications, E78.5 - Hyperlipidemia, unspecified, I10 - Essential (primary) hypertension Microalbumin, Random (w Creat) 6 Months E03.9 - Hypothyroidism, unspecified, E11.9 - Type 2 diabetes mellitus without complications, E78.5 - Hyperlipidemia, unspecified, I10 - Essential (primary) hypertension TSH reflex Free T4 6 Months E03.9 - Hypothyroidism, unspecified, E11.9 - Type 2 diabetes mellitus without complications, E78.5 - Hyperlipidemia, unspecified, I10 - Essential (primary) hypertension Lipid Panel 6 Months E03.9 - Hypothyroidism, unspecified, E11.9 - Type 2 diabetes mellitus without complications, E78.5 - Hyperlipidemia, unspecified, I10 - Essential (primary) hypertension
== END 2023-12-24 09:31 | disposition home or self-care (01) ==
PROVIDERS: PCP Internal Medicine; Visit Provider Internal Medicine
DX: Z00.00 Encounter for general adult medical examination without abnormal findings (principal); E11.69 Type 2 diabetes mellitus with other specified complication; E78.5 Hyperlipidemia, unspecified; J45.909 Unspecified asthma, uncomplicated; I10 Essential (primary) hypertension

== ENCOUNTER → 2023-12-24 08:26 | Outpatient (BNVA) | payer MEDICARE, OTHER, SELFPAY | PROVIDERS: PCP Internal Medicine; Visit Provider Internal Medicine | DX: Z00.00 Encounter for general adult medical examination without abnormal findings (principal); E78.5 Hyperlipidemia, unspecified; J45.909 Unspecified asthma, uncomplicated; I10 Essential (primary) hypertension; E11.9 Type 2 diabetes mellitus without complications | CPT/HCPCS: 96127; 99397 ==

== ENCOUNTER 2024-06-10 07:46 | Outpatient (REF) | payer MEDICARE, OTHER, SELFPAY ==
--- OUTSIDE RECORDS SUMMARY | 2024-06-10 07:48 | XMS_ITS | Clinical Summary ---
Author Organization [facility] Address [address] [id number] Care Team Providers Care General Machine Operator Name Role Phone Fanta Cox Primary Care Provider [phone] Allergies No known active allergies Medications Medication Sig Dispensed Refills Start Date End Date Status PROAIR RESPICLICK 108 (90 Base) MCG/ACT AEPB Take 1 puff by mouth every 4 (four) hours as needed. 2 03/12/2017 Active omeprazole (PRILOSEC) 20 MG capsule Take 20 mg by mouth daily. 0 Active atenolol-chlorthalido ne (TENORETIC) 50-25 MG per tablet Take 1 tablet by mouth daily. 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 Breast cancer screening Resolved Problems Problem Noted Date Diagnosed Date Resolved Date Varicella 07/20/2017 Family History Medical History Relation Name Comments Coronary artery disease Father Heart disease Father Hyperlipidemia Father Hypertension Father Stroke Father Diabetes Maternal Grandfather Diabetes Maternal Grandmother Arthritis Mother Diabetes Mother Coronary artery disease Paternal Grandfather Relation Name Status Comments Father liver failure Maternal Grandfather Maternal Grandmother Mother Alive Paternal Grandfather Social History Tobacco Use Types Packs/Day Years Used Date Smoking Tobacco: Never Smokeless Tobacco: Never Alcohol Use Standard Drinks/Week Comments Yes 0 (1 standard drink = 0.6 oz pur e alcohol) occ Sex and Gender Information Value Date Recorded Sex Assigned at Not on file Gender Identity Not on file Sexual Orientation Not on file Last Filed Vital Signs Vital Sign Reading Time Taken Comments Blood Pressure 114/70 07/20/2017 4:19 PM EDT Pulse 85 07/20/2017 4:19 PM EDT Temperature 36.8 ??C (98.3 ??F) 07/20/2017 4:19 PM ED T Respiratory Rate 10 04/16/2017 4:17 PM EST Oxygen Saturation 95% 07/20/2017 4:19 PM EDT Inhaled Oxygen Concentration - - Weight 77.1 kg (170 lb) 07/20/2017 4:19 PM EDT Height 163.8 cm (5' 4.5 ) 07/20/2017 4:19 PM EDT Body Mass Index 28.73 07/20/2017 4:19 PM EDT Plan of Treatment Health Maintenance Due Date Last Done Comments Hepatitis C Screening 1960 COVID-19 Vaccine (#1) 1960 Pneumococcal Vaccine (1 of 2 - PCV) 02/19/1964 Preventative Health Evaluation 02/19/1976 DTap / Tdap / Td (1 - Tdap) 1977 Shingrix-Zoster Vaccine (1 o f 2) 02/19/2008 Depression Screening 07/20/2018 07/20/2017 Breast Cancer Screening (Mammogram) 03/06/2019 03/06/2017, 04/14/2013 Fall Risk Assessment 2023 Osteoporosis Screening (DEXA Scan) 2023 Influenza Vaccine (#1) 2023 Colon Cancer Screening (Colonoscopy) 01/12/2025 01/12/2015 RSV Adult > 60+ Yrs or (1 - 1-dose 75+ series) 2033 Hepatitis B Vaccines Aged Out No long er eligible based on patient's age to complete this topic RSV Ped < 20 months Aged Out No longe r eligible based on patient's age to complete this topic Care Teams General Machine Operator Relationship Specialty Start Date End Date Fanta Cox DO PCP - General Family Medicine 03/12/17
[2024-06-10 10:06] LABS: MANUAL DIFF FLAG NO
[2024-06-10 10:14] LABS: Basophils Percent Auto 0.6 % (0-2); Eosinophils Absolute Auto 0.2 X10*3/uL (0.0-0.4); Eosinophils Percent Auto 4.8 % (0-4); Hematocrit 44.2 % (37.0-47.0); Hemoglobin 14.6 g/dl (12.0-16.0); Imm Gran Abs Auto 0.02 X10*3/uL (0.00-0.03); Imm Gran Pct Auto 0.4 % (0.0-0.4); Lymphocytes Absolute Auto 1.7 X10*3/uL (1.2-4.9); Lymphocytes Percent Auto 34.9 % (20-40); Mean Corpuscular Hemoglobin 30.8 pg (27.0-33.0); Mean Corpuscular Volume 93.2 fL (80.0-98.0); Mean Platelet Volume 9.4 fL (9.4-12.3); Monocytes Absolute Auto 0.4 X10*3/uL (0.1-1.2); Monocytes Percent Auto 8.3 % (2-11); Neutrophils Absolute Auto 2.5 x10*3/uL (2.0-8.3); Platelet Count 175 X10*3/uL (160-400); Red Blood Count 4.74 X10*6/uL (4.20-5.50); Red Cell Distribution Width 13.4 % (11.0-16.0)
[2024-06-10 10:27] LABS: Estimated Average Glucose 120 mg/dL; Hemoglobin A1C 149.3926 umol/L; Hemoglobin A1c % 5.8 % (<6.0); Total Hemoglobin (HGBA1C) 3784.1609 umol/L
[2024-06-10 10:38] LABS: Creatinine Urine 104.42 mg/dL; Microalbum/Creatinine Ratio Ur 4.7 ug/mg cr (<30)
[2024-06-10 10:54] LABS: Alanine Aminotransferase 40 U/L (0-31); Albumin Level 4.3 g/dL (3.5-5.0); Alkaline Phosphatase 53 U/L (39-117); Anion Gap 12 (12-20); Aspartate Amino Transferase 34 U/L (5-31); Bilirubin Total 0.8 mg/dL (0.0-1.0); Blood Urea Nitrogen 13 mg/dL (9-16); Calcium 9.5 mg/dL (8.4-10.2); Carbon Dioxide 29 mmol/L (22-29); Chloride 105 mmol/L (96-108); Cholesterol 126 mg/dL (<200); Estimated Glomerular Filt Rate > 60; Glucose Fasting 118 mg/dL (60-99); HDL Cholesterol 70 mg/dL (>40); LDL Cholesterol Calculated 45 mg/dL (<100); Potassium 4.4 mmol/L (3.3-5.1); Sodium 142 mmol/L (135-145); Triglycerides 56 mg/dL (<150)
[2024-06-10 10:55] LABS: TSH reflex Free T4 0.41 uIU/mL (0.32-4.0)
== END 2024-06-10 07:47 | disposition home or self-care (01) ==
LOC: HO.HMGCLDS 07:46
PROVIDERS: PCP Internal Medicine; Visit Provider Internal Medicine
DX: E78.5 Hyperlipidemia, unspecified (principal); I10 Essential (primary) hypertension; E03.9 Hypothyroidism, unspecified; E11.9 Type 2 diabetes mellitus without complications
CPT/HCPCS: 36415; 80053; 80061; 82043; 82570; 83036; 84443; 85025

== ENCOUNTER 2024-06-14 11:14 | Outpatient (AMB) | payer MEDICARE, OTHER, SELFPAY ==
--- NOTE | 2024-06-14 11:15 | A.OFFPC_ITS ---
Vital Signs 06/14/24 11:36 Height 5 ft 2 in Weight 166 lb BMI 30.4 BP 124/76 Blood Pressure Location Rt brachial Position Sitting Respiration 18 Pulse 79 Pulse Source Pulse Oximeter Pulse Oximetry (%) 96 Oxygen Delivery Method Room Air Intake Visit Reasons: 6m Follow up Allergies No Known Allergies Allergy (Verified 06/14/24 11:17) Medication List - Last Reconciled 06/14/24 by Tiffany Stringer MD albuterol sulfate 90 mcg/actuation 2 puffs inhalation Q6H PRN aspirin (Adult Aspirin Regimen) 81 mg PO DAILY budesonide 90 mcg/actuation (Pulmicort Flexhaler) 2 inhalations inhalation BID clotrimazole 1% 1 appl topical BID ketoconazole 400 mg (2 x 200 mg) PO DAILY levalbuterol tartrate 45 mcg/actuation (Xopenex HFA) 2 inhalations inhalation Q6H levothyroxine 125 mcg PO DAILY losartan 25 mg PO DAILY metoprolol succinate ER 50 mg PO DAILY metoprolol succinate ER (Toprol XL) 25 mg PO DAILY omeprazole 10 mg PO DAILY rosuvastatin 10 mg PO DAILY Tobacco use date assessed: 06/14/24 Last assessed Fall Risk: 06/14/24 Dental Screening Dental Screen Date: 06/14/24 Did you have a dental visit in the last 12 months?: Yes Did you have a dental problem in the last 6 months where you did not have access to dental care?: No Was dental information given to patient?: Patient has dentist HPI 6m Follow up HPI Details Pt presents for HTN, hyperlipid, hypothyroid, stable on meds. [facility] Medical History (Updated 06/14/24 @ 13:29 by Tiffany Stringer MD) Breast calcification, right Dysplastic nevi Normal breast exam Annual physical exam Tachycardia COVID-19 Gastric polyp GERD (gastroesophageal reflux disease) Asthma Microscopic hematuria HTN (hypertension) Hypothyroidism Surgical History H/O colonoscopy History of hysteroscopy Family History Father CAD (coronary artery disease) Social History Housing: House Alcohol intake: current Alcohol intake frequency: 0-2 drinks per day Alcohol type: wine Patient Tobacco Use Status: Never used Tobacco e-Cigarette/Vaping Use: Never Used Second Hand Smoke Exposure: No service: No Current occupational status: retired Cognitive needs: No Hearing needs: No Vision needs: Yes Questionnaire PHQ-9 Over the last 2 weeks, how often have you been bothered by any of the following problems? 1. Little interest or pleasure in doing things: not at all 2. Feeling down, depressed, or hopeless: not at all 3. Trouble falling or staying asleep, or sleeping too much: not at all 4. Feeling tired or having little energy: not at all 5. Poor appetite or overeating: not at all 6. Feeling bad about yourself - or that you are a failure or have let yourself or your family down: not at all 7. Trouble concentrating on things, such as reading the newspaper or watching television: not at all 8. Moving or speaking so slowly that other people could have noticed. Or the opposite - being so fidgety or restless that you have been moving around a lot more than usual: not at all 9. Thoughts that you would be better off or of hurting yourself in some way: not at all Total score: 0 Depression Screening Interpretation: Negative Depression Screening Done: Yes 76960 - PHQ-9 Billing: Yes Source: Developed by Drs. Isiah Bingham, Sherri Lawler, Shashi May and colleagues, with an educational madelyn from [employer]. Thrive Questionnaire Date Thrive assessed: 06/14/24 I am a: Patient What is your living situation today?: I have a steady place to live Within the past 12 months, did the food you bought not last and you didn't have the money to get more?: Never true Within the past 12 months, did you worry whether your food would run out before you got money to buy more?: Never true Do you have trouble paying for medicines?: No Do you have trouble getting transportation to medical appointments?: No Do you have trouble paying your heating and electricity bill?: No Do you have trouble taking care of your child, family member or friend?: No Do you have trouble with day-to-day activities such as bathing, preparing meals, shopping, managing finances, etc.?: No Are you currently unemployed and looking for a job?: No Are you interested in more education?: No Please select the resources that you would like help with: None Currently or been in a relationship where the following occur: No concerns reported THRIVE Score: 0 AUDIT C Alcohol Use Questionnaire (AUDIT-C) 1. How often do you have a drink containing alcohol?: 2-3 times a week 2. How many drinks containing alcohol do you have on a typical day when you are drinking?: 1 or 2 3. How often do you have six or more drinks on one occasion?: Never Total Score: 3 PATT-7 AMB Questionnaire PATT-7 Date PATT - 7 assessed: 06/14/24 Feeling nervous, anxious, or on edge: 0 = Not at all Not being able to stop or control worryin = Not at all Worrying too much about different things: 0 = Not at all Trouble relaxin = Not at all Being so restless that it is hard to sit still: 0 = Not at all Becoming easily annoyed or irritable: 0 = Not at all Feeling afraid as if something awful might happen: 0 = Not at all Total PATT-7 score (0-4 normal; 5-9 mild; 10-14 moderate; 15-21 severe): 0 Source: Developed by Drs. Isiah Bingham, Sherri Lawler, Shashi May and colleagues, with an educational madelyn from [employer]. PATT-7 Assessment Billing PATT-7 Assessment Tool: PATT-7 Assessment 34912 Review of Systems Const All systems reviewed & are unremarkable except as noted in HPI and below Eyes Reports no additional complaints ENT Reports no additional complaints Card Reports no additional complaints Resp Reports no additional complaints GI Reports no additional complaints Reports no additional complaints Physical exam (Primary Care) Vital Signs: Last Vital Signs Pulse 79 06/14/24 11:36 Resp 18 06/14/24 11:36 BP 124/76 06/14/24 11:36 Pulse Ox 96 06/14/24 11:36 Oxygen Delivery Method Room Air 06/14/24 11:36 BMI result Body Mass Index 30.4 Tobacco/Smoking Status: Tobacco use Status Tobacco use date assessed 06/14/24 06/14/24 11:17 Patient Tobacco Use Status Never used Tobacco 06/14/24 11:17 e-Cigarette/Vaping Use Never Used 06/14/24 11:17 PHQ-9: PHQ-9 Score PHQ-9: Total score 0 06/14/24 11:47 Depression Screening Interpretation: Negative Thrive Assessment: Date of Thrive Assessment Date Thrive assessed 06/14/24 06/14/24 11:17 Currently or been in a relationship where the following occur: No concerns reported Const General: no acute distress HENMT Head: Yes normal to inspection Face and sinus: Yes normal facial exam Throat: Yes posterior oropharynx normal Neck Neck: Yes supple Resp Effort & Inspection: normal respiratory effort Auscultation: clear to auscultation bilaterally Cardio Rhythm: regular rhythm Heart sounds: S1 normal heart sound present and S2 normal heart sound present GI Inspection: Yes normal to inspection Palpation (GI): Soft to palpation Coding Level of Care Code Est Pt Level 4 (34464) Diagnoses Hypothyroidism, unspecified type E03.9 Hypothyroidism type: unspecified HTN (hypertension) I10 Hyperglycemia R73.9 Additional Codes PATT-7 Assessment Billing - PATT-7 Assessment Tool: PATT-7 Assessment 41944 ([id number]) PHQ-9 - 95072 - PHQ-9 Billing: Yes ([id number]) Assessment & Plan Assessment & Plan (1) Hypothyroidism: Comment: s/p Iodine tx for Grave disease Code(s): E03.9 - Hypothyroidism, unspecified Category: Medical Qualifiers: Hypothyroidism type: unspecified Qualified Code(s): E03.9 - Hypothyroidism, unspecified Plan: Continue levothyroxine monitor TSH (2) HTN (hypertension): Code(s): I10 - Essential (primary) hypertension Category: Medical Plan: Continue current medications (3) Hyperglycemia: Code(s): R73.9 - Hyperglycemia, unspecified Category: Medical Plan: A1c is 5.8, ADA diet regular exercise weight loss discussed with the patient return in 6 months with a fasting labs before Orders: Orders Hemoglobin A1c 6 Months E03.9 - Hypothyroidism, unspecified, E11.9 - Type 2 diabetes mellitus without complications, I10 - Essential (primary) hypertension Comprehensive [place]. Panel Fast 6 Months E03.9 - Hypothyroidism, unspecified, E11.9 - Type 2 diabetes mellitus without complications, I10 - Essential (primary) hypertension Lipid Panel 6 Months E03.9 - Hypothyroidism, unspecified, E11.9 - Type 2 diabetes mellitus without complications, I10 - Essential (primary) hypertension Microalbumin, Random (w Creat) 6 Months E03.9 - Hypothyroidism, unspecified, E11.9 - Type 2 diabetes mellitus without complications, I10 - Essential (primary) hypertension Complete Blood Count Auto Diff 6 Months E03.9 - Hypothyroidism, unspecified, E11.9 - Type 2 diabetes mellitus without complications, I10 - Essential (primary) hypertension TSH reflex Free T4 6 Months E03.9 - Hypothyroidism, unspecified, E11.9 - Type 2 diabetes mellitus without complications, I10 - Essential (primary) hypertension
[2024-06-14 11:36] VITALS: BP 124/76; PULSE 79; RESP 18; O2SAT 96; BMI 30.4
--- OUTSIDE RECORDS SUMMARY | 2024-06-14 13:04 | XMS_ITS | Clinical Summary ---
Author Organization [facility] Address [address] [id number] Care Team Providers Care Dye Box Operator Name Role Phone Fanta Cox Primary Care Provider [phone]- [phone] Allergies No known active allergies Medications Medication [...] age to complete this topic Care Teams Dye Box Operator Relationship Specialty Start Date End Date Fanta Cox DO PCP - General Family Medicine 03/12/17
== END 2024-06-14 12:29 | disposition home or self-care (01) ==
LOC: HO.HMCC 11:15
PROVIDERS: PCP Internal Medicine; Visit Provider Internal Medicine
DX: E03.9 Hypothyroidism, unspecified (principal); I10 Essential (primary) hypertension; R73.9 Hyperglycemia, unspecified

== ENCOUNTER → 2024-06-14 11:14 | Outpatient (BNVA) | payer MEDICARE, OTHER, SELFPAY | PROVIDERS: PCP Internal Medicine; Visit Provider Internal Medicine | DX: E03.9 Hypothyroidism, unspecified (principal); R73.9 Hyperglycemia, unspecified; I10 Essential (primary) hypertension | CPT/HCPCS: 96127; 99212 ==

== ENCOUNTER 2024-06-27 11:15 | Outpatient (REF) | payer MEDICARE, OTHER, SELFPAY ==
--- OUTSIDE RECORDS SUMMARY | 2024-06-27 12:00 | XMS_ITS | Clinical Summary ---
Author Organization [facility] Address [address] [id number] Care Team Providers Care Knurling Machine Operator Name Role Phone Fanta Cox Primary Care Provider [phone]- [phone] Allergies No known active allergies Medications Medication [...] age to complete this topic Care Teams Knurling Machine Operator Relationship Specialty Start Date End Date Fanta Cox DO PCP - General Family Medicine 03/12/17
== END 2024-06-27 11:16 | disposition home or self-care (01) ==
LOC: HO.MAMMO 11:15
PROVIDERS: PCP Internal Medicine; Visit Provider Internal Medicine
DX: Z12.31 Encounter for screening mammogram for malignant neoplasm of breast (principal)
CPT/HCPCS: 77063; 77067

== ENCOUNTER → 2024-06-27 11:30 | Outpatient (BNV) | payer MEDICARE, OTHER, SELFPAY | PROVIDERS: PCP Internal Medicine; Visit Provider Internal Medicine | DX: Z12.31 Encounter for screening mammogram for malignant neoplasm of breast (principal) | CPT/HCPCS: 77063; 77067 ==

== ENCOUNTER 2024-07-21 08:51 | Outpatient (AMB) | payer OTHER, SELFPAY ==
--- NOTE | 2024-07-21 08:55 | A.OFFVIS_ITS ---
Vital Signs 07/21/24 08:57 Height 5 ft 2 in Weight 162 lb 11.218 oz BMI 29.8 BP 140/80 H Blood Pressure Location Lt brachial Position Sitting Pulse 107 H Pulse Source Monitor Intake Visit Reasons: 1 yr f/up DC Soaping Department Supervisor Required: No Accompanied by: Self / Same As Patient Allergies No Known Allergies Allergy (Verified 06/14/24 11:17) Medication List - Last Reconciled 07/21/24 by Benjamin Kennedy MD albuterol sulfate 90 mcg/actuation 2 puffs inhalation Q6H PRN aspirin (Adult Aspirin Regimen) 81 mg PO DAILY budesonide 90 mcg/actuation (Pulmicort Flexhaler) 2 inhalations inhalation BID clotrimazole 1% 1 appl topical BID ketoconazole 400 mg (2 x 200 mg) PO DAILY levalbuterol tartrate 45 mcg/actuation (Xopenex HFA) 2 inhalations inhalation Q6H levothyroxine 125 mcg PO DAILY losartan 25 mg PO DAILY metoprolol succinate ER 50 mg PO DAILY metoprolol succinate ER (Toprol XL) 25 mg PO DAILY PRN omeprazole 10 mg PO DAILY rosuvastatin 10 mg PO DAILY HPI Comments Details: Gretchen returns for follow-up. In the past, she was seen regarding tachycardia. She had COVID infection and after that, she has had intermittent high heart rates. She has been on beta-blockers. She has also had coronary workup including calcium scoring CT scan followed by coronary CTA which shows coronary disease, but no interventions have been performed. Medically managed. She is followed up with our nurse practitioner for the last few visits but now she is back to see me. Overall, she states she is feeling quite good, but she has some family issues and hence quite stressed today. She states she is quite active otherwise and does not have any symptoms like chest pains or palpitations or in fact any cardiac symptoms at all. [facility] Medical History (Updated 07/21/24 @ 09:32 by Benjamin Kennedy MD) Atherosclerotic cardiovascular disease Breast calcification, right Dysplastic nevi Normal breast exam Annual physical exam Tachycardia COVID-19 Gastric polyp GERD (gastroesophageal reflux disease) Asthma Microscopic hematuria HTN (hypertension) Hypothyroidism Surgical History H/O colonoscopy History of hysteroscopy Family History Father CAD (coronary artery disease) Social History Housing: House Alcohol intake: current Alcohol intake frequency: 0-2 drinks per day Alcohol type: wine Patient Tobacco Use Status: Never used Tobacco e-Cigarette/Vaping Use: Never Used Second Hand Smoke Exposure: No service: No Current occupational status: retired Cognitive needs: No Hearing needs: No Vision needs: Yes Review of Systems Const Denies chills, Denies fatigue, Denies fever(s), Denies frequent falls, Denies weakness, Denies weight gain and Denies weight loss ENT Denies dizziness Card Denies chest pain, Denies leg edema, Denies lightheadedness, Denies palpitations, Denies dyspnea and Denies dyspnea on exertion Resp Denies cough, Denies dyspnea and Denies dyspnea on exertion GI Denies hematochezia Musc Denies abnormal gait, Denies muscle weakness, Denies numbness, Denies radiating pain into limb and Denies tingling Neuro Denies abnormal gait, Denies dizziness, Denies frequent falls, Denies numbness, Denies tingling and Denies weakness Endo Denies fatigue and Denies palpitations Physical Exam Vital Signs: Last Vital Signs Pulse 107 H 07/21/24 08:57 BP 140/80 H 07/21/24 08:57 BMI result Body Mass Index 29.8 Const General: comfortable and no acute distress Orientation/consciousness: patient oriented x3 HEENT Other: Unremarkable Head: Yes normal to inspection Neck Neck: Yes normal visual inspection Chest Chest palpation & inspection: normal inspection of the chest Resp Auscultation: clear to auscultation bilaterally Cardio Palpation: normal PMI Heart sounds: S1 normal heart sound present, S2 normal heart sound present, no gallops, no murmurs and no rubs GI Palpation (GI): Soft to palpation Back/Spine/Pelvis Other: unremarkable Skin General skin exam: no rashes or lesions noted Neuro General: patient oriented x3 Extrem General: Yes normal to inspection Psych Mental Status: mental status grossly normal Office Procedures EKG Details: EKG with sinus tachycardia at 01:07/Min; no ischemic changes; [place] [address]-[id number], Complete Assessment & Plan Assessment & Plan (1) Atherosclerotic cardiovascular disease: Code(s): I25.10 - Atherosclerotic heart disease of [place] coronary artery without angina pectoris Category: Medical Plan: Coronary [id number] main with this still mild calcification but no significant stenosis. LAD with moderate calcified plaque in the proximal to mid LAD associated with < 40% stenosis. No significant stenosis in the circumflex or RCA. Clinically, she has got no angina. Continue aspirin and statins. Seems she was on higher dose of statins, but prefers to just take low-dose. LDL seems well controlled. (2) Tachycardia: Code(s): R00.0 - Tachycardia, unspecified Category: Medical Plan: Supposedly started after COVID. Echocardiogram in the past but with preserved LVEF. She takes beta-blockers for symptomatic relief. (3) PVC (premature ventricular contraction): Code(s): I49.3 - Ventricular premature depolarization Category: Medical Plan: Based on prior Holter, PVC burden is 3.2%. Beta-blockers as above should help. (4) Essential hypertension: Code(s): I10 - Essential (primary) hypertension Category: Medical Plan: On Losartan. Stable. Coding Level of Care Code Est Pt Level 4 (00862) Complex EM visit Add On G2211 Diagnoses Atherosclerotic cardiovascular disease I25.10 Tachycardia R00.0 PVC (premature ventricular contraction) I49.3 Essential hypertension I10 CPT Codes EKG - CPT: 86942-[id number], Complete ([id number])
[2024-07-21 08:57] VITALS: BP 140/80; PULSE 107; BMI 29.8
--- OUTSIDE RECORDS SUMMARY | 2024-07-21 09:25 | XMS_ITS | Clinical Summary ---
Author Organization [facility] Address [address] [id number] Care Team Providers Care Rehabilitation Assistant Name Role Phone Fanta Cox Primary Care Provider [phone]- [phone] Allergies No known active allergies Medications Medication [...] Osteoporosis Screening (DEXA Scan) 2023 Influenza Vaccine (Season Ended) 2024 Colon Cancer Screening (Colonoscopy) 01/12/2025 01/12/2015 RSV Adult > 60+ Yrs or (1 - 1-dose 75+ series) 2033 Hepatitis B Vaccines Aged Out No long er eligible based on patient's age to complete this topic RSV Ped < 20 months Aged Out No longe r eligible based on patient's age to complete this topic Care Teams Rehabilitation Assistant Relationship Specialty Start Date End Date Fanta Cox DO PCP - General Family Medicine 03/12/17
== END 2024-07-21 09:13 | disposition home or self-care (01) ==
LOC: HO.HCS 08:52
PROVIDERS: PCP Internal Medicine; Visit Provider Internal Medicine
DX: I25.10 Atherosclerotic heart disease of native coronary artery without angina pectoris (principal); R00.0 Tachycardia, unspecified; I49.3 Ventricular premature depolarization; I10 Essential (primary) hypertension
CPT/HCPCS: 93010; 99214; G2211

== ENCOUNTER → 2024-07-21 08:51 | Outpatient (BNVA) | payer OTHER, SELFPAY | PROVIDERS: PCP Internal Medicine; Visit Provider Internal Medicine | DX: I25.10 Atherosclerotic heart disease of native coronary artery without angina pectoris (principal); R00.0 Tachycardia, unspecified; I49.3 Ventricular premature depolarization; I10 Essential (primary) hypertension | CPT/HCPCS: 93005 ==

== ENCOUNTER 2024-12-06 10:06 | Outpatient (AMB) | payer MEDICARE, OTHER, SELFPAY ==
[2024-12-06 10:33] VITALS: BP 134/96; PULSE 105; TEMP 36.1; O2SAT 99; BMI 29.8
--- NOTE | 2024-12-06 10:33 | MHC.OFFWIV ---
Intake Vital Signs 12/06/24 10:33 Height 5 ft 2 in Weight 163 lb BMI 29.8 BP 134/96 H Blood Pressure Location Lt brachial Position Sitting Pulse 105 H Pulse Source Pulse Oximeter Temp 97 F Temp Source Oral Pulse Oximetry (%) 99 Oxygen Delivery Method Room Air Intake Visit Reasons: EP-rt foot & ankle pain & swollen from a fall Intake Note: Patient presents with right ankle/foot pain & swelling related to a fall off the stairs yesterday. Patient Tobacco Use Status: Never used Tobacco Allergies No Known Allergies Allergy (Verified 12/06/24 10:36) Do you need a note to return to daycare/school/sports/work: No HPI HPI Comments History of Present Illness Details History of Present Illness - The patient is a 64-year-old female presenting with a right ankle injury due to missing a step, yesterday. - The injury occurred when the patient missed the bottom stair, resulting in everting her right ankle. - The incident happened yesterday afternoon, and the patient initially applied ice and rested for an hour. Was not able to take a few steps right away. - The patient reports difficulty walking and tenderness in the right ankle, with visible bruising and swelling. - The patient can move the ankle slightly but experiences increased discomfort with movement. Can move and feel toes but reports they are swollen as well as she cannot twist her toe rings today and she usually can. - No prior history of similar injuries or significant medical conditions affecting the ankle was discussed. Review of Systems - Musculoskeletal: Reports right ankle pain and swelling. Denies significant pain in the center of the ankle. - Neurological: Denies numbness or tingling in the toes. All systems reviewed and are unremarkable except as noted in HPI Physical Exam General: Cooperative, healthy appearing, comfortable, no acute distress and well developed Orientation: Patient oriented x3 Limitations: limping gait with right ankle pain Head: Normal to inspection, no head injury noted Ears: Hearing grossly normal bilaterally Nose: Normal External nose present Face and sinus: Normal facial exam Eyes: Appearance normal, both eyes and all related structures Neck: Normal visual inspection and Yes full ROM Respiratory: Normal respiratory effort and able to speak in complete sentences. Skin: ecchymosis on lateral right ankle, no lacerations Neuro: Patient oriented x3 Extremities: Right ankle with edema on lateral side, TTP to posterior and medial malleolus on the right ankle, no TTP to navicular bones, foot bones or toes, toes with slight edema but full ROM and all toes NVI. [facility] Medical History (Updated 12/06/24 @ 11:05 by Oralia Cohn PA-C) Atherosclerotic cardiovascular disease Breast calcification, right Dysplastic nevi Normal breast exam Annual physical exam Tachycardia COVID-19 Gastric polyp GERD (gastroesophageal reflux disease) Asthma Microscopic hematuria HTN (hypertension) Hypothyroidism Surgical History H/O colonoscopy History of hysteroscopy Family History Father CAD (coronary artery disease) Social History Housing: House Alcohol intake: current Alcohol intake frequency: 0-2 drinks per day Alcohol type: wine Patient Tobacco Use Status: Never used Tobacco e-Cigarette/Vaping Use: Never Used Second Hand Smoke Exposure: No service: No Current occupational status: retired Cognitive needs: No Hearing needs: No Vision needs: Yes Physical Exam Vital Signs: Last Vital Signs Temp 97 F 12/06/24 10:33 Pulse 105 H 12/06/24 10:33 BP 134/96 H 12/06/24 10:33 Pulse Ox 99 12/06/24 10:33 Oxygen Delivery Method Room Air 12/06/24 10:33 BMI result Body Mass Index 29.8 Assessment & Plan Assessment & Plan (1) Ankle sprain: Code(s): S93.409A - Sprain of unspecified ligament of unspecified ankle, initial encounter Qualifiers: Encounter type: initial encounter Involved ligament of ankle: anterior talofibular ligament Laterality: right Qualified Code(s): S93.491A - Sprain of other ligament of right ankle, initial encounter Plan: Patient was informed and verbally consented to the use of an ambient scribe for clinic note documentation during this visit. Right Ankle Sprain - Plan to obtain an x-ray of the right ankle to rule out any fractures. - my interpretation of the right ankle x-ray is no acute fracture or dislocation. - Advise rest, ice application, compression, and elevation (RICE) for the ankle. - Fit pt for a boot for proper rest, wean off over next 2-3 weeks to BIA wrap, educated pt on how to put boot on, take it off, do not drive with boot. Advised to do twice daily ROM exercises of ankle. - If no improvement in her pain and swelling over the coming weeks, follow up with PCP or return to the [facility] In [facility]. Orders: Orders XR ankle RT min 3V Today M25.571 - Pain in right ankle and joints of right foot, S93.409A - Sprain of unspecified ligament of unspecified ankle, initial encounter, W19.XXXA - Unspecified fall, initial encounter Coding Level of Care Code Est Pt Level 4 (08597) Diagnoses Sprain of anterior talofibular ligament of right ankle, initial encounter S93.491A Encounter type: initial encounter Involved ligament of ankle: anterior talofibular ligament Laterality: right
--- OUTSIDE RECORDS SUMMARY | 2024-12-06 12:10 | XMS_ITS | Patient Health Record ---
Author Organization [facility] Address [address] [place] [address] Care Team Providers Care Telephone Triage Nurse Name Role Phone En Hudson MD Primary Care Provider Isiah Rodriguez [phone] Reason For Referral No Information Medications Medication SIG (Take, Route, Fr equency, Duration) Notes Start Date End Date Status Levothyroxine Sodium Active MoviPrep 100 GM as directed Orally a s directed; Duration: 1 dose 09/03/2014 Active Combivent prn Active Pepcid AC 10 MG 1 tablet as needed O rally Twice a day Active Atenolol Active Problems Problem Type SNOMED Code ICD Code Onset Dates Problem Status W/U Status Risk Notes Problem Colon cancer screening (743652628) Colon cancer screening (V76.51) Active confirmed Problem Liver function tests abnormal (378605400) Abnormal liver function tests (790.6) Active confirmed Problem Gastroesophageal reflux disease (528074680) GERD (gastroesopha geal reflux disease) (530.81) Active confirmed Plan Of Treatment Pending Test Test Name Order Date LIVER PROFILE 09/01/2014 IRON + IBC (FE) 09/01/2014 FERRITIN 09/01/2014 HEPATITIS B PROFILE 09/01/2014 HEPATITIS C ANTIBODY 09/01/2014 [id number] (A1A) 09/01/2014 MITOCHONDRIAL AB 09/01/2014 SMOOTH MUSCLE ANTIBODIES 09/01/2014 FLUOR. ANTINUCLEAR AB SCREEN (JOANNE) 08/10 Future Test Test Name Order Date UPPER GI ENDOSCOPY 09/01/2014 COLONOSCOPY 09/01/2014 Insurance Providers Payer Name Payer Address Payer Phone Subscriber Number Group Number Insured Name Patient Relationship to Insured Coverage Start Date Coverage End Date HMO [employer] CLAIMS [address] [place] [address] [phone] [id number]IV[address] Self - patient is the insured Medical (General) History Medical History History ICD Code HTN Denies IN,DM,CVA,Lung disease,renal dise ase Hypothyroid Elevated LFT's--AST 39 and ALT 55 in 05/11 015 Mild asthma Surgical History Surgery Date(Month/Year) D & C
--- OUTSIDE RECORDS SUMMARY | 2024-12-06 12:10 | XMS_ITS | Clinical Summary ---
Author Organization [facility] Address [address] [place] [address] Care Team Providers Care Outdoor Guide Name Role Phone Fanta Cox Primary Care Provider [phone]- [phone] Allergies No known active allergies Medications Medication [...] 85 07/20/2017 4:19 PM EDT Temperature 36.8 C (98.3 F) 07/20/2017 4:19 PM EDT Respiratory Rate 10 04/16/2017 4:17 PM EST [...] Screening (DEXA Scan) 2023 Influenza Vaccine (#1) 2024 Colon Cancer Screening (Colonoscopy) 01/12/2025 01/12/2015 RSV Adult > 60+ Yrs or (1 - 1-dose 75+ series) 2033 Hepatitis B Vaccines Aged Out No long er eligible based on patient's age to complete this topic RSV Ped < 20 months Aged Out No longe r eligible based on patient's age to complete this topic Care Teams Outdoor Guide Relationship Specialty Start Date End Date Fanta Cox DO PCP - General Family Medicine 03/12/17
== END 2024-12-06 12:13 | disposition home or self-care (01) ==
PROVIDERS: PCP Internal Medicine; Visit Provider Physician Assistant
DX: S93.491A Sprain of other ligament of right ankle, initial encounter (principal)

== ENCOUNTER 2024-12-06 10:06 | Outpatient (REF) | payer MEDICARE, OTHER, SELFPAY ==
--- NOTE | ~2024-12-06 | XR_ITS ---
EXAMINATION: XR ANKLE, RIGHT CLINICAL INFORMATION: S93.409A - Sprain of unspecified ligament of unspecified ankle, initial ... COMPARISON: None available. TECHNIQUE: AP, lateral, and mortise views of the right ankle. FINDINGS: Prominent soft tissue swelling, more prominent laterally. No visible acute fracture or dislocation. Tibiotalar dictation is maintained. No talar dome OCD. Subtalar articulation is maintained. No suspicious bony lesions. Large plantar calcaneal spur. No suspicious soft tissue calcification. XR/XR ankle RT min 3V IMPRESSION: 1. Prominent soft tissue swelling. 2. No radiographic evidence of acute fracture or dislocation. Electronically signed by: Lev Joe MD 12/06/2024 11:12 AM EDT
== END 2024-12-06 10:07 | disposition home or self-care (01) ==
LOC: HO.HMGCX 10:06
PROVIDERS: PCP Internal Medicine; Visit Provider Physician Assistant
DX: S93.491A Sprain of other ligament of right ankle, initial encounter (principal); W10.9XXA Fall (on) (from) unspecified stairs and steps, initial encounter
CPT/HCPCS: 73610; 99212

== ENCOUNTER → 2024-12-06 11:02 | Outpatient (BNV) | payer MEDICARE, OTHER, SELFPAY | PROVIDERS: PCP Internal Medicine; Visit Provider Radiology Diagnostic Ultrasound | DX: S93.409A Sprain of unspecified ligament of unspecified ankle, initial encounter (principal) | CPT/HCPCS: 73610 ==

== ENCOUNTER 2024-12-24 07:52 | Outpatient (REF) | payer MEDICARE, OTHER, SELFPAY ==
--- OUTSIDE RECORDS SUMMARY | 2024-12-24 07:55 | XMS_ITS | Clinical Summary ---
Author Organization [facility] Address [address] [id number] Care Team Providers Care Film Or Tape Librarian Name Role Phone Fanta Cox Primary Care Provider [phone]- [phone] Allergies No known active allergies Medications Medication [...] age to complete this topic Care Teams Film Or Tape Librarian Relationship Specialty Start Date End Date Fanta Cox DO PCP - General Family Medicine 03/12/17
[2024-12-24 11:38] LABS: MANUAL DIFF FLAG NO
[2024-12-24 11:52] LABS: Hematocrit 43.0 % (37.0-47.0); Hemoglobin 14.1 g/dl (12.0-16.0); Imm Gran Abs Auto 0.00 X10*3/uL (0.00-0.03); Imm Gran Pct Auto 0.0 % (0.0-0.4); Lymphocytes Absolute Auto 1.8 X10*3/uL (1.2-4.9); Mean Corpuscular HGB Conc 32.8 g/dl (31.0-35.0); Mean Corpuscular Hemoglobin 30.9 pg (27.0-33.0); Mean Corpuscular Volume 94.1 fL (80.0-98.0); NRBC Abs Auto 0.000 X10*3/uL (0.0-0.012); NRBC Pct Auto 0.0 /100WBC (0.0-0.2); Platelet Count 199 X10*3/uL (160-400); Red Blood Count 4.57 X10*6/uL (4.20-5.50); White Blood Count 4.8 X10*3/uL (4.8-10.8)
[2024-12-24 12:26] LABS: Alanine Aminotransferase 34 U/L (0-31); Albumin Level 4.3 g/dL (3.5-5.0); Alkaline Phosphatase 47 U/L (39-117); Anion Gap 11 (12-20); Aspartate Amino Transferase 28 U/L (5-31); Blood Urea Nitrogen 11 mg/dL (9-16); Calcium 9.3 mg/dL (8.4-10.2); Carbon Dioxide 28 mmol/L (22-29); Chloride 107 mmol/L (96-108); Cholesterol 112 mg/dL (<200); Estimated Glomerular Filt Rate > 60; HDL Cholesterol 59 mg/dL (>40); Potassium 4.8 mmol/L (3.3-5.1); Sodium 141 mmol/L (135-145); Total Protein 6.8 g/dL (6.5-8.0); Triglycerides 68 mg/dL (<150)
[2024-12-24 12:42] LABS: Microalbum/Creatinine Ratio Ur 12.2 ug/mg cr (<30)
== END 2024-12-24 07:53 | disposition home or self-care (01) ==
LOC: HO.HMGCLDS 07:52
PROVIDERS: PCP Internal Medicine; Visit Provider Internal Medicine
DX: E11.9 Type 2 diabetes mellitus without complications (principal); I10 Essential (primary) hypertension; E03.9 Hypothyroidism, unspecified
CPT/HCPCS: 36415; 80053; 80061; 82043; 82570; 83036; 84443; 85025

== ENCOUNTER 2024-12-26 10:10 | Outpatient (AMB) | payer MEDICARE, OTHER, SELFPAY ==
--- NOTE | 2024-12-26 10:28 | MHC.PC.OV ---
Vital Signs 12/26/24 10:30 Height 5 ft 2 in Weight 162 lb BMI 29.6 BP 126/78 Blood Pressure Location Lt brachial Position Sitting Respiration 16 Pulse 81 Pulse Source Pulse Oximeter Temp 97.9 F Temp Source Oral Pulse Oximetry (%) 95 Oxygen Delivery Method Room Air Intake Visit Reasons: Annual PE Intake Note: Pt is here today for PE. Allergies No Known Allergies Allergy (Verified 12/26/24 10:34) Medication List - Last Reconciled 12/26/24 by Tiffany Stringer MD albuterol sulfate 90 mcg/actuation 2 puffs inhalation Q6H PRN aspirin (Adult Aspirin Regimen) 81 mg PO DAILY budesonide 90 mcg/actuation (Pulmicort Flexhaler) 2 inhalations inhalation BID clotrimazole 1% 1 appl topical BID ketoconazole 400 mg (2 x 200 mg) PO DAILY levalbuterol tartrate 45 mcg/actuation (Xopenex HFA) 2 inhalations inhalation Q6H levothyroxine 125 mcg PO DAILY losartan 25 mg PO DAILY metoprolol succinate ER (Toprol XL) 25 mg PO DAILY PRN metoprolol succinate ER 50 mg PO DAILY omeprazole 10 mg PO DAILY rosuvastatin 10 mg PO DAILY Tobacco use date assessed: 12/26/24 Fall risk assessment: 1 Fall in past year Last assessed Fall Risk: 12/26/24 Dental Screening Dental Screen Date: 06/14/24 HPI Annual PE HPI Details Pt presents for PE. PFSH Medical History Atherosclerotic cardiovascular disease Breast calcification, right Dysplastic nevi Normal breast exam Annual physical exam Tachycardia COVID-19 Gastric polyp GERD (gastroesophageal reflux disease) Asthma Microscopic hematuria HTN (hypertension) Hypothyroidism Surgical History H/O colonoscopy History of hysteroscopy Family History Father CAD (coronary artery disease) Social History Housing: House Alcohol intake: current Alcohol intake frequency: 0-2 drinks per day Alcohol type: wine Patient Tobacco Use Status: Never used Tobacco e-Cigarette/Vaping Use: Never Used Second Hand Smoke Exposure: No service: No Current occupational status: retired Cognitive needs: No Hearing needs: No Vision needs: Yes Questionnaire PHQ-9 Over the last 2 weeks, how often have you been bothered by any of the following problems? 1. Little interest or pleasure in doing things: not at all 2. Feeling down, depressed, or hopeless: not at all 3. Trouble falling or staying asleep, or sleeping too much: not at all 4. Feeling tired or having little energy: not at all 5. Poor appetite or overeating: not at all 6. Feeling bad about yourself - or that you are a failure or have let yourself or your family down: not at all 7. Trouble concentrating on things, such as reading the newspaper or watching television: not at all 8. Moving or speaking so slowly that other people could have noticed. Or the opposite - being so fidgety or restless that you have been moving around a lot more than usual: not at all 9. Thoughts that you would be better off or of hurting yourself in some way: not at all Total score: 0 Depression Screening Interpretation: Negative Depression Screening Done: Yes Source: Developed by Drs. Isiah Bingham, Sherri Lawler, Shashi May and colleagues, with an educational madelyn from [employer]. Thrive Questionnaire Date Thrive assessed: 06/09/24 I am a: Patient What is your living situation today?: I have a steady place to live Within the past 12 months, did the food you bought not last and you didn't have the money to get more?: Never true Within the past 12 months, did you worry whether your food would run out before you got money to buy more?: Never true Do you have trouble paying for medicines?: No Do you have trouble getting transportation to medical appointments?: No Do you have trouble paying your heating and electricity bill?: No Do you have trouble taking care of your child, family member or friend?: No Do you have trouble with day-to-day activities such as bathing, preparing meals, shopping, managing finances, etc.?: No Are you currently unemployed and looking for a job?: No Are you interested in more education?: No Please select the resources that you would like help with: None Currently or been in a relationship where the following occur: No concerns reported THRIVE Score: 0 PATT-7 AMB Questionnaire PATT-7 Date PATT - 7 assessed: 06/14/24 Feeling nervous, anxious, or on edge: 0 = Not at all Not being able to stop or control worryin = Not at all Worrying too much about different things: 0 = Not at all Trouble relaxin = Not at all Being so restless that it is hard to sit still: 0 = Not at all Becoming easily annoyed or irritable: 0 = Not at all Feeling afraid as if something awful might happen: 0 = Not at all Total PATT-7 score (0-4 normal; 5-9 mild; 10-14 moderate; 15-21 severe): 0 Source: Developed by Drs. Isiah Bingham, Sherri Lawler, Shashi May and colleagues, with an educational madelyn from [employer]. Review of Systems Const All systems reviewed & are unremarkable except as noted in HPI and below Eyes Reports no additional complaints ENT Reports no additional complaints Card Reports no additional complaints Resp Reports no additional complaints GI Reports no additional complaints Reports no additional complaints Physical exam (Primary Care) Vital Signs: Last Vital Signs Temp 97.9 F 12/26/24 10:30 Pulse 81 12/26/24 10:30 Resp 16 12/26/24 10:30 BP 126/78 12/26/24 10:30 Pulse Ox 95 12/26/24 10:30 Oxygen Delivery Method Room Air 12/26/24 10:30 BMI result Body Mass Index 29.6 Tobacco/Smoking Status: Tobacco use Status Tobacco use date assessed 12/26/24 12/26/24 10:36 Patient Tobacco Use Status Never used Tobacco 12/26/24 10:30 e-Cigarette/Vaping Use Never Used 12/26/24 10:30 PHQ-9: PHQ-9 Score PHQ-9: Total score 0 12/26/24 10:36 Depression Screening Interpretation: Negative Thrive Assessment: Date of Thrive Assessment Date Thrive assessed 06/09/24 12/26/24 10:30 Currently or been in a relationship where the following occur: No concerns reported Const General: no acute distress HENMT Head: Yes normal to inspection Ears: hearing grossly normal bilaterally Face and sinus: Yes normal facial exam Eyes General: appearance normal, both eyes and all related structures Neck Neck: Yes no lymphadenopathy and Yes supple Resp Effort & Inspection: normal respiratory effort Auscultation: clear to auscultation bilaterally Cardio Rhythm: regular rhythm Heart sounds: S1 normal heart sound present and S2 normal heart sound present GI Inspection: Yes normal to inspection Palpation (GI): Soft to palpation Percussion: Yes normal to percussion Auscultation: normal bowel sounds Coding Level of Care Code Est Pt Prev Care >65y(07749) Diagnoses Right ankle injury S99.911A HTN (hypertension) I10 Hyperlipidemia E78.5 Hyperglycemia R73.9 Hypothyroidism, unspecified type E03.9 Hypothyroidism type: unspecified Annual physical exam Z00.00 Assessment & Plan Assessment & Plan (1) Right ankle injury: Code(s): S99.911A - Unspecified injury of right ankle, initial encounter Category: Medical Plan: For Ankle injury patient will be referred to physical therapy (2) HTN (hypertension): Code(s): I10 - Essential (primary) hypertension Category: Medical Plan: Continue current medications (3) Hyperlipidemia: Code(s): E78.5 - Hyperlipidemia, unspecified Category: Medical Plan: Continue statin (4) Hyperglycemia: Code(s): R73.9 - Hyperglycemia, unspecified Category: Medical Plan: A1c is 6.2. ADA diet regular exercise weight loss discussed with the patient follow-up in 4 months with a fasting labs before (5) Hypothyroidism: Comment: s/p Iodine tx for Grave disease Code(s): E03.9 - Hypothyroidism, unspecified Category: Medical Qualifiers: Hypothyroidism type: unspecified Qualified Code(s): E03.9 - Hypothyroidism, unspecified Plan: Continue levothyroxine (6) Annual physical exam: Code(s): Z00.00 - Encounter for general adult medical examination without abnormal findings Category: Medical Plan: Well-balanced diet regular physical activity discussed with the patient. She is up-to-date with the mammogram colonoscopy and DEXA Orders: Orders Comprehensive [place]. Panel Fast 4 Months E78.5 - Hyperlipidemia, unspecified, I10 - Essential (primary) hypertension PT Evaluation and Treatment Today S99.911A - Unspecified injury of right ankle, initial encounter Hemoglobin A1c 4 Months E78.5 - Hyperlipidemia, unspecified, I10 - Essential (primary) hypertension Microalbumin, Random (w Creat) 4 Months E78.5 - Hyperlipidemia, unspecified, I10 - Essential (primary) hypertension UA w Microscopic 4 Months E78.5 - Hyperlipidemia, unspecified, I10 - Essential (primary) hypertension Medications: New metoprolol succinate ER (Toprol XL) 25 mg PO DAILY PRN 30 tabs 0RF palpitations losartan 50 mg PO DAILY 90 tabs 0RF Discontinued ketoconazole Discontinued Reason: Doctor's Order 400 mg (2 x 200 mg) PO DAILY 14 tabs 0RF losartan Discontinued Reason: Doctor's Order 25 mg PO DAILY 90 tabs 3RF
[2024-12-26 10:30] VITALS: BP 126/78; PULSE 81; RESP 16; TEMP 36.6; O2SAT 95; BMI 29.6
--- OUTSIDE RECORDS SUMMARY | 2024-12-26 21:11 | XMS_ITS | Patient Health Record ---
Author Organization [facility] Address [address] [place] [address] Care Team Providers Care Facility Supervisor Name Role Phone En Hudson MD Primary Care Provider Isiah Rodriguez [phone] Reason For Referral No Information Medications Medication SIG (Take, Route, Frequency, Duration) Notes Start Date End Date Status Levothyroxine Sodium Active MoviPrep 100 GM Solution as directed Ora lly as directed; Duration: 1 dose 09/03/2014 Activ e Combivent prn Active Pepcid AC 10 MG Tablet 1 tablet as neede d Orally Twice a day Active Atenolol Active Social History Social History Additional Details Category Social Info Options Details Miscellaneous: Marital status: Occupation: surgery teacher-- Health teacher in [employer] Notes: Nonsmoker; 1 glass of wine w ith dinner Problems Problem Type SNOMED Code ICD Code Onset Dates Problem Status W/U Status Risk Notes Problem Colon cancer screening (017272598) Colon cancer screening (V76.51) Active confirmed Problem Liver function tests abnormal (567882649) Abnormal liver function tests (790.6) Active confirmed Problem Gastroesophageal reflux disease (726062352) GERD (gastroesopha geal reflux disease) (530.81) Active confirmed Plan Of Treatment Pending Test Test Name Order Date LIVER PROFILE 09/01/2014 IRON + IBC (FE) 09/01/2014 FERRITIN 09/01/2014 HEPATITIS B PROFILE 09/01/2014 HEPATITIS C ANTIBODY 09/01/2014 [id number] (A1A) 09/01/2014 MITOCHONDRIAL AB 09/01/2014 SMOOTH MUSCLE ANTIBODIES 09/01/2014 FLUOR. ANTINUCLEAR AB SCREEN (JOANNE) 08/10 Future Test Test Name Order Date UPPER GI ENDOSCOPY 09/01/2014 COLONOSCOPY 09/01/2014 Insurance Providers Payer Name Payer Address Payer Phone Subscriber Number Group Number Insured Name Patient Relationship to Insured Coverage Start Date Coverage End Date [facility] [employer] [address] [place] [address] [id number] CINDY OLIVIA Self - patient is the insured Medical (General) History Medical History History ICD Code HTN Denies ID,DM,CVA,Lung disease,renal dise ase Hypothyroid Elevated LFT's--AST 39 and ALT 55 in 05/11 015 Mild asthma Surgical History Surgery Date(Month/Year) D & C
--- OUTSIDE RECORDS SUMMARY | 2024-12-26 21:12 | XMS_ITS | Clinical Summary ---
Author Organization [facility] Address [address] [place] [address] Care Team Providers Care Nurse Anesthetist Name Role Phone Fanta Cox Primary Care Provider +1- [phone] Allergies No known active allergies Medications Medication [...] age to complete this topic Care Teams Nurse Anesthetist Relationship Specialty Start Date End Date Fanta Cox DO PCP - General Family Medicine 03/12/17
== END 2024-12-26 15:08 | disposition home or self-care (01) ==
LOC: HO.HMCC 10:11
PROVIDERS: PCP Internal Medicine; Visit Provider Internal Medicine
DX: Z00.00 Encounter for general adult medical examination without abnormal findings (principal); S99.911A Unspecified injury of right ankle, initial encounter; I10 Essential (primary) hypertension; E78.5 Hyperlipidemia, unspecified; R73.9 Hyperglycemia, unspecified; E03.9 Hypothyroidism, unspecified

== ENCOUNTER → 2024-12-26 10:10 | Outpatient (BNVA) | payer MEDICARE, OTHER, SELFPAY | PROVIDERS: PCP Internal Medicine; Visit Provider Internal Medicine | DX: Z00.00 Encounter for general adult medical examination without abnormal findings (principal); I10 Essential (primary) hypertension; E78.5 Hyperlipidemia, unspecified; R73.9 Hyperglycemia, unspecified; E03.9 Hypothyroidism, unspecified; S99.911A Unspecified injury of right ankle, initial encounter; X58.XXXA Exposure to other specified factors, initial encounter; Y93.9 Activity, unspecified; Y92.9 Unspecified place or not applicable; Y99.9 Unspecified external cause status | CPT/HCPCS: 96127; 99397 ==